=== PATIENT | female | born 1990 | race Caucasian/White ===

== ENCOUNTER → 2020-07-13 07:52 | Outpatient (CLI) | payer OTHER, MEDICAID, SELFPAY ==
--- NOTE | 2020-07-13 | DI.US.S_ITS ---
PROCEDURE: US THYROID INDICATIONS: Nontoxic goiter, IUD PLACEMENT/ ANKLE INJURY TECHNIQUE: Real-time scanning was performed of the thyroid gland, with image documentation. COMPARISON: [facility], US, US PELVIC COMPLETE, 07/13/2020, 11:08. FINDINGS: Right: Thyroid lobe measures 5 x 1.8 x 1.8 cm. Left: Thyroid lobe measures 4.6 x 1.2 x 1.8 cm. Isthmus: 3.6 mm thick. IMPRESSION: Unremarkable thyroid, without focal nodules identified. ACR TI-RADS definitions and recommendations: TI-RADS 1 (benign): 0 points. FNA not needed. TI-RADS 2 (not suspicious): 2 points. FNA not needed. TI-RADS 3 (mildly suspicious): 3 points. * FNA if 2.5 cm or larger, follow up if 1.5 cm or larger (at 1, 3, and 5 years). TI-RADS 4 (moderately suspicious): 4-6 points. * FNA if 1.5 cm or larger, follow up if 1 cm or larger (at 1, 2, 3, and 5 years). TI-RADS 5 (highly suspicious): 7 points or more. * FNA if 1 cm or larger, follow up if 0.5 cm or larger (every year for 5 years). Dictated by: Sean Lindsay M.D. on 07/13/2020 at 12:03 Approved by: Sean Lindsay M.D. on 07/13/2020 at 12:03
--- NOTE | 2020-07-13 | DI.US.S_ITS ---
PROCEDURE: US PELVIC COMPLETE INDICATIONS: Nontoxic goiter, IUD PLACEMENT/ ANKLE INJURY TECHNIQUE: Real-time scanning was performed of the pelvic organs, with image documentation. Additional endovaginal scanning was necessary due to incomplete visualization of the adnexal and endometrial structures by transabdominal scanning. COMPARISON: [facility], , US THYROID, 07/13/2020, 10:55. [facility], , PELVIC COMPLETE, 07/07/2013, 12:23. FINDINGS: Transabdominal scanning: Limited scanning through the kidneys shows no hydronephrosis. No pathologic free abdominal or pelvic fluid. Endovaginal scanning: Uterus: Uterus is normal in size at 6.5 x 2.9 x 4.3 cm. The endometrium measures 4 mm in combined thickness. An IUD is seen at its expected location. Ovaries: The right ovary measures 4.7 x 3.2 x 3.1 cm and demonstrates a complex cyst that measures 2.6 x 1.9 x 2.3 cm. The left ovary measures 2.9 x 2.1 x 2 x 1 cm and demonstrates an unremarkable sonographic appearance. Normal appearing arterial waveforms are confirmed to each ovary. No adnexal masses are seen on either side. IMPRESSION: The IUD is seen at its expected location. A likely hemorrhagic cyst is seen involving the right ovary. At clinical discretion, a followup pelvic ultrasound is suggested in 6 weeks to assure resolution/ improvement. Dictated by: Sean Lindsay M.D. on 07/13/2020 at 12:04 Approved by: Sean Lindsay M.D. on 07/13/2020 at 12:05
--- NOTE | 2020-07-13 | DI.RAD.S_ITS ---
PROCEDURE: XR ANKLE LT 2V INDICATIONS: LEFT ANKLE INJURY 6 MONTHS AGO/ ONGOING PAIN TECHNIQUE: 3 views of the ankle were acquired. COMPARISON: [facility], , ANKLE 3 VIEWS RIGHT, 09/25/2015, 15:01. FINDINGS: Bones: No fractures or dislocations. Ankle mortise is normally aligned. No suspicious bony lesions. Soft tissues: No tibiotalar joint effusion. Achilles tendon appears normal. IMPRESSION: Source of her persistent pain after 6 months ago trauma is not found. Dictated by: Juan F Forrest M.D. on 07/13/2020 at 9:03 Approved by: Juan F Forrest M.D. on 07/13/2020 at 10:32
== END ==
PROVIDERS: PCP Internal Medicine; Referring Provider Internal Medicine; Visit Provider Internal Medicine
DX: Z30.431 Encounter for routine checking of intrauterine contraceptive device (principal); N83.291 Other ovarian cyst, right side; E04.9 Nontoxic goiter, unspecified; M25.572 Pain in left ankle and joints of left foot
CPT/HCPCS: 73610; 76536; 76830; 76856

== ENCOUNTER → 2020-08-16 14:52 | Outpatient (CLI) | payer OTHER, MEDICAID, SELFPAY ==
--- NOTE | 2020-08-16 14:54 | DI.US.S_ITS ---
PROCEDURE: US PELVIC COMPLETE INDICATIONS: Hemorrhagic cyst right ovary TECHNIQUE: Real-time scanning was performed of the pelvic organs, with image documentation. Additional endovaginal scanning was necessary due to incomplete visualization of the adnexal and endometrial structures by transabdominal scanning. COMPARISON: [facility], , US PELVIC COMPLETE, 07/13/2020, 11:08. FINDINGS: Transabdominal scanning: Limited scanning through the kidneys shows no hydronephrosis. No pathologic free abdominal or pelvic fluid. Endovaginal scanning: Uterus: Uterus is normal in size at 6.3 x 2.7 x 3.5 cm. The endometrium measures 4.4 mm in combined thickness. Ovaries: Both ovaries have a normal size. The right ovary measures 3.0 x 2.7 x 2.7 centimeters. The left ovary measures 3.2 x 1.7 x 2.2 centimeters. The right ovary has a 5 x 3 millimeter hyperechoic focus with posterior acoustic shadowing consistent with a calcification or possible corpus albicans (residual from prior hemorrhagic cyst.) Kidneys: Both kidneys have a normal size and appearance. IMPRESSION: 1. No acute abnormality of the pelvis. 2. IUD is in good position. 3. Hemorrhagic cyst seen on the prior study has resolved. Dictated by: Saqib Hanks M.D. on 08/16/2020 at 16:33 Approved by: Saqib Hanks M.D. on 08/16/2020 at 16:38
== END ==
PROVIDERS: PCP Internal Medicine; Referring Provider Internal Medicine; Visit Provider Internal Medicine
DX: N83.201 Unspecified ovarian cyst, right side (principal); Z97.5 Presence of (intrauterine) contraceptive device
CPT/HCPCS: 76856

== ENCOUNTER 2021-05-26 08:42 | Emergency (ER) | payer OTHER, MEDICAID, SELFPAY ==
[2021-05-26 08:56] VITALS: BP 170/94; PULSE 86; RESP 16; TEMP 36.6; O2SAT 98
--- NOTE | 2021-05-26 09:22 | DI.RAD.S_ITS ---
PROCEDURE: XR KUB INDICATIONS: lt side pain TECHNIQUE: One view of the abdomen acquired. COMPARISON: None. FINDINGS: Surgical changes and devices: IUD noted within the pelvis.. Bowel: Bowel gas pattern is normal. Soft tissues: No suspicious abdominal calcifications. Visualized solid organ contours appear normal in size. Bones: Likely bone island within the right femoral neck. No acute osseous abnormality. IMPRESSION: No acute abnormality. Dictated by: Lucas Escobedo D.O. on 05/26/2021 at 8:56 Approved by: Lucas Escobedo D.O. on 05/26/2021 at 8:57
--- NOTE | 2021-05-26 09:24 | ED_ITS ---
HPI - Abdominal Pain General Chief Complaint: Abdominal Pain Stated Complaint: pain in left side below ribs Time Seen by Provider: 05/26/21 09:11 Source: patient Mode of arrival: Ambulatory History of Present Illness HPI narrative: Patient here with . Complains of reproducible left upper quadrant pain. Worse with laying flat in up and moving. Worse on palpation. No changes with eating or not eating. No nausea vomiting diarrhea. No urinary complaints. Patient has IUD. Does not have her periods. Denies any past abdominal surgical history. No history of insert reflux or stomach ulcer. No relief with ibuprofen Related Data Previous Rx's Medication Instructions Recorded pantoprazole 40 mg tablet,delayed 40 mg PO DAILY #14 tab 05/26/21 release (Protonix) sucralfate 1 gram tablet (Carafate) 1 g PO TID #21 tab 05/26/21 Allergies Allergy/AdvReac Type Severity Reaction Status Date / Time No Known Drug Allergies Allergy Verified 05/26/21 09:02 Review of Systems Review of Systems Narrative: GENERAL: Denies chills, fatigue, malaise, fever, sweats. HEENT: Denies sinus pain, ear pain, sore throat RESPIRATORY: Denies dyspnea, cough CARDIOVASCULAR: Denies chest pain, palpitations GASTROINTESTINAL: Denies nausea, vomiting, positive abdominal pain : Denies dysuria, frequency, hematuria MUSCULOSKELETAL: denies muscle or bony pain SKIN: Denies rash, skin lesions NEUROLOGIC: Denies weakness, numbness ROS Unobtainable: All systems reviewed & are unremarkable except as noted in HPI and below Patient History Medical History Acne (~2009) Painful menstrual periods (~2007) Plantar warts (~1997) Surgical History History of third molar tooth extraction (~2009) History of use of contraceptive intrauterine device (IUD) (~05/25/13) Family History Father Age: 51 Coronary artery disease, angina presence unspecified, unspecified vessel or lesion type, unspecified whether [place] or transplanted heart High cholesterol Essential hypertension Mother Age: 50 [place] syndrome Uncomplicated asthma, unspecified asthma severity Grandfather Age: 78 Essential hypertension High cholesterol Heart disease Grandmother Age: 78 Diabetes mellitus Grandfather No problems noted. Social History Smoking Status: Never smoker Smoking Status: Never smoker alcohol intake frequency: a few times a week Substance Use Type: does not use Exam Narrative Exam Narrative: GENERAL: in no distress, not toxic not dyspneic HEAD: Normocephalic. EYES: Pupils equal round No scleral icterus. NECK: Trachea midline. CARDIOVASCULAR: Regular rate and rhythm without murmurs RESPIRATORY: Clear to auscultation. Breath sounds equal bilaterally. No wheezes, rales, or rhonchi. GASTROINTESTINAL: Abdomen soft, reproducible left upper quadrant tenderness on palpation. No CVA tenderness. No peritoneal signs. Bowel sounds present EXTREMITIES: No gross deformities. BACK: No flank tenderness. NEURO: AOx4. SKIN: Warm and dry PSYCH: Not anxious, is cooperative Initial Vital Signs Initial Vital Signs: Vital Signs Temperature 98 F 05/26/21 08:56 Pulse Rate 86 05/26/21 08:56 Respiratory Rate 16 05/26/21 08:56 Blood Pressure 170/94 H 05/26/21 08:56 Pulse Oximetry 98 05/26/21 08:56 Course Course Course Narrative: No new issues during course of stay Orders Ordered: ED Orders 05/26/21 09:22 XR KUB Stat 05/26/21 09:35 Complete Blood Count AUTO DIFF Stat Comprehensive Metabolic Panel Stat Lipase Stat Discontinued Medications Al Hydrox/Mg Hydrox/Simethicone 20 ml/ Lidocaine HCl 15 ml 0 ml PO NOW ONE Stop: 05/26/21 10:50 Last Admin: 05/26/21 10:57 Dose: 35 ml Documented by: ANIVAL Pantoprazole Sodium (Pantoprazole 40 Mg Vial) 40 mg IV NOW ONE Stop: 05/26/21 09:24 Last Admin: 05/26/21 09:51 Dose: Not Given Documented by: MOOKOTEM Pantoprazole Sodium (Pantoprazole Dr 20 Mg Tablet) 40 mg PO NOW ONE Stop: 05/26/21 09:49 Last Admin: 05/26/21 10:01 Dose: 40 mg Documented by: ANIVAL Reevaluation(s) Reevaluation #1: Patient states got some relief with GI cocktail. On reexamination less tender on palpation of left upper quadrant. Reviewed blood work and x-ray with patient. Agrees with treatment plan. No CT scan at this time. Will try antacids and prescription and follow-up with primary care. Given patient referral general surgeon for possible endoscopy of the stomach if not improving. Blood pressure improved 136/89 at time of discharge. Pulse 77. Respiration 17. 99% room air. Time: 11:32 Vital Signs Vital signs: Vital Signs - 8 hr 05/26/21 08:56 05/26/21 10:40 05/26/21 11:49 Temperature 98 F Pulse Rate 86 77 77 Respiratory Rate 16 17 17 Blood Pressure 170/94 H 136/89 128/76 Pulse Oximetry 98 99 98 MDM - Abdominal Pain Differential Diagnosis Differential diagnosis: Likely abdominal pain, calculus of kidney, diverticulitis, gastroenteritis, pancreatitis, small bowel obstruction and other (Gastritis/GERD) Lab Data Result diagrams: 05/26/21 09:35 05/26/21 09:35 Labs: Lab Results 05/26/21 05/26/21 Range/Units 09:35 09:35 WBC 5.2 (4.5-11.0) X10^3/uL RBC 4.47 (4.0-5.2) X10^6/uL Hgb 13.9 (12.0-16.0) g/dL Hct 42.3 (36-46) % MCV 94.7 (80-100) fL MCH 31.1 (26-34) PG MCHC 32.8 (30-36) % RDW 12.7 (11.6-14.8) % Plt Count 233 (150-400) X10^3/uL Neut % (Auto) 62.0 (50-75) % Lymph % (Auto) 28.1 (25-40) % Robertson % (Auto) 6.9 (3-14) % Eos % (Auto) 2.6 (2-4) % Baso % (Auto) 0.4 (0-2) % Neut # (Auto) 3200 (6005-7180) /uL Lymph # (Auto) 1500 (1242-5903) /uL Robertson # (Auto) 400 (0-900) /uL Eos # (Auto) 100 (0-450) /uL Baso # (Auto) 0 (0-100) /uL Sodium 139 (137-145) mmol/L Potassium 4.8 (3.4-5.1) mmol/L Chloride 106 (98-107) mmol/L Carbon Dioxide 26 (22-32) mmol/L BUN 13 (7-17) mg/dL Creatinine 0.63 (0.52-1.04) mg/dL Estimated GFR > 60.0 (>60) mL/min BUN/Creatinine Ratio 20.6 (6-22) Glucose 88 (70-100) mg/dL Calcium 9.2 (8.4-10.2) mg/dL Total Bilirubin 0.6 (0.2-1.3) mg/dL AST 23 (14-36) IU/L ALT 16 (<35) IU/L Alkaline Phosphatase 56 (38-126) U/L Total Protein 7.5 (6.3-8.2) g/dL Albumin 4.4 (3.5-5.0) g/dL Globulin 3.1 (1.7-4.1) g/dL Albumin/Globulin Ratio 1.4 (1.0-2.8) Lipase 86 (23-300) U/L Point of care testing: Point of Care Testing Test Results Negative Urine Dip Bedside Urine Glucose Negative Bedside Urine Bilirubin - Negative Bedside Urine Ketone - Negative Urine Specific [place] 1.015 Bedside Urine Occult Blood - Negative Bedside Urine pH 7.0 Bedside Urine Protein - Negative Bedside Urine Urobilinogen - Negative Bedside Urine Nitrite - Negative Bedside Urine Leukocytes - Negative Esterase Imaging Data Abdominal x-ray: Radiologist's Impression: [address] [id number] XRay Report Signed Patient: Jacqueline Cummings MR#: [id number] : 1990 Acct:[id number] Age/Sex: 30 / F Date of Service: 05/26/21 Loc: ED Accession Number: [id number] ?? Procedure: XR KUB Ordering Provider: Junior Ramos MD PROCEDURE:? XR KUB ? INDICATIONS:? lt side pain ? TECHNIQUE:? One view of the abdomen acquired.? ? COMPARISON:? None. ? FINDINGS:? ? Surgical changes and devices:? IUD noted within the pelvis..? ? Bowel:? Bowel gas pattern is normal.? ? Soft tissues:? No suspicious abdominal calcifications.? Visualized solid organ contours appear normal in size.? ? Bones:? Likely bone island within the right femoral neck.? No acute osseous abnormality. ? IMPRESSION:? ? No acute abnormality. ? ? Dictated by: Lucas Escobedo D.O. on 05/26/2021 at 8:56 ? ? Approved by: Lucas Escobedo D.O. on 05/26/2021 at 8:57 ? MDM Narrative Medical decision making narrative: Appropriate for discharge home. Patient not toxic. Review results with patient and . Return precautions reviewed with him. Agree no CT scan at this time. Pain is reproducible left upper quadrant. Labs and exam and x-ray reassuring. Patient does have primary care to follow up with. Clinically not cardiac. No chest pain. Pain is rep roducible. No Cummings sign right-sided abdominal tenderness. No ultrasound indicated. Again, labs and exam and imaging reassuring. Return precautions reviewed with patient to return immediately if worse if any questions or concerns. Discharge Plan Departure Patient Disposition: Home Clinical Impression: Abdominal pain Instructions: DI for Abdominal Pain-Adult Activity Restrictions/Additional Instructions: No spicy foods. See family doctor next week for recheck. Referral given for possible endoscopy of the stomach if needed. Return if worse if any questions or concerns Prescriptions: New pantoprazole [Protonix] 40 mg tablet,delayed release (DR/EC) 40 mg PO DAILY Qty: 14 RF: 0 sucralfate [Carafate] 1 gram tablet 1 g PO TID Qty: 21 RF: 0 Referrals: Christin Monterroso ARNP [Primary Care Provider] - Nano Cordova MD [Physician] -
[2021-05-26 09:46] LABS: Add Manual Diff / Slide Review NO; Basophils Absolute Auto 0 /uL (0-100); Basophils Percent Auto 0.4 % (0-2); Eosinophils Absolute Auto 100 /uL (0-450); Eosinophils Percent Auto 2.6 % (2-4); Hematocrit 42.3 % (36-46); Hemoglobin 13.9 g/dL (12.0-16.0); Lymphocytes Absolute Auto 1500 /uL (1100-4500); Lymphocytes Percent Auto 28.1 % (25-40); Mean Corpuscular HGB Conc 32.8 % (30-36); Mean Corpuscular Hemoglobin 31.1 PG (26-34); Mean Corpuscular Volume 94.7 fL (80-100); Monocytes Absolute Auto 400 /uL (0-900); Monocytes Percent Auto 6.9 % (3-14); Neutrophils Absolute Auto 3200 /uL (1500-7000); Platelet Count 233 X10^3/uL (150-400); Red Blood Cell Count 4.47 X10^6/uL (4.0-5.2); Red Cell Distribution Width 12.7 % (11.6-14.8); White Blood Cell Count 5.2 X10^3/uL (4.5-11.0)
[2021-05-26] MEDS: PANTOPRAZOLE DR 20 MG TABLET 40 MG PO (10:01)
[2021-05-26 10:06] LABS: Alanine Aminotransferase 16 IU/L (<35); Albumin 4.4 g/dL (3.5-5.0); Albumin Globulin Ratio 1.4 (1.0-2.8); Alkaline Phosphatase 56 U/L (38-126); Aspartate Aminotransferase 23 IU/L (14-36); BUN Creatinine Ratio 20.6 (6-22); Bilirubin Total 0.6 mg/dL (0.2-1.3); Blood Urea Nitrogen 13 mg/dL (7-17); Calcium 9.2 mg/dL (8.4-10.2); Carbon Dioxide 26 mmol/L (22-32); Chloride 106 mmol/L (98-107); Estimated Glomerular Filt Rate > 60.0 mL/min (>60); Globulin 3.1 g/dL (1.7-4.1); Glucose 88 mg/dL (70-100); HEMOLYSIS < 15 (0-50); Lipase 86 U/L (23-300); Potassium 4.8 mmol/L (3.4-5.1); Sodium 139 mmol/L (137-145); Total Protein 7.5 g/dL (6.3-8.2)
[2021-05-26 10:40] VITALS: BP 136/89; PULSE 77; RESP 17; O2SAT 99
[2021-05-26] MEDS: MAG HYDROX/ALUMINUM/SIMETH SUS 20 ML, LIDOCAINE VISCOUS 2% 15 ML PO (10:57)
[2021-05-26 11:49] VITALS: BP 128/76; PULSE 77; RESP 17; O2SAT 98
== END 2021-05-26 11:50 | disposition home or self-care (01) ==
PROVIDERS: Emergency Provider Emergency Medicine; PCP Internal Medicine
DX: R10.12 Left upper quadrant pain (principal)
CPT/HCPCS: 36415; 74018; 80053; 81003; 81025; 83690; 85025; 99283; 99284

== ENCOUNTER → 2021-06-05 07:01 | Outpatient (CLI) | payer OTHER, MEDICAID, SELFPAY ==
--- NOTE | 2021-06-05 07:02 | DI.US.S_ITS ---
PROCEDURE: US PELVIC COMPLETE INDICATIONS: IUD STRINGS NOT FOUND TECHNIQUE: Real-time scanning was performed of the pelvic organs, with image documentation. Additional endovaginal scanning was necessary due to incomplete visualization of the adnexal and endometrial structures by transabdominal scanning. COMPARISON: [facility], US, US PELVIC COMPLETE, 08/16/2020, 15:13. FINDINGS: Uterus: Uterus is anteverted, anteflexed, and normal in size at 5.8 x 2.2 x 4.3 cm. An IUD is situated normally in the fundal endometrium. The endometrium measures 1.8 mm in combined thickness. Ovaries: The right ovary measures 3.3 x 1.8 x 2.0 cm. The left ovary measures 2.5 x 2.3 x 2.2 cm. Normal follicular echotexture and vascular flow in each ovary. Other: No pathologic free abdominal or pelvic fluid. IMPRESSION: 1. Satisfactory position of IUD. 2. Normal ovaries. Dictated by: Vashti Canales M.D. on 06/07/2021 at 17:32 Approved by: Vashti Canales M.D. on 06/07/2021 at 17:34
== END ==
PROVIDERS: PCP Internal Medicine; Referring Provider Obstetrics & Gynecology; Visit Provider Obstetrics & Gynecology
DX: T83.32XA Displacement of intrauterine contraceptive device, initial encounter (principal)
CPT/HCPCS: 76830; 76856

== ENCOUNTER → 2021-08-07 08:53 | Outpatient (CLI) | payer OTHER, MEDICAID, SELFPAY ==
[2021-08-07 10:17] LABS: COVID19 -Nasal RAPID Negative (Negative)
== END ==
PROVIDERS: PCP Internal Medicine; Visit Provider Physician Assistant
DX: Z20.822 Contact with and (suspected) exposure to COVID-19 (principal)
CPT/HCPCS: 87635

== ENCOUNTER → 2021-08-20 09:08 | Outpatient (CLI) | payer OTHER, MEDICAID, SELFPAY ==
--- NOTE | 2021-08-20 | DI.US.S_ITS ---
LIMITED ULTRASOUND OF LEFT BREAST: 08/20/2021 CLINICAL: Palpable left breast lump x 1 year. No prior exams were available for comparison. Real-time ultrasound of the left breast 5-7 o'clock region was performed. Bran scale images of the real-time examination were reviewed. No mass in the region of the palpable abnormality. IMPRESSION: NEGATIVE No sonographic evidence of malignancy in the region of the palpable abnormality. Return to annual mammogram screening schedule is recommended. Usually to commence at age 40. Exam findings were conveyed to the patient. Patient is advised to monitor for significant change. Clinical follow-up as needed. This exam was interpreted at Station ID: [id number]. Electronically Signed By: Steven Castañeda M.D. [facility] [place]08/20/2021 10:00:57 letter sent: Normal Exam Ultrasound BI-RADS: 1 Negative
== END ==
PROVIDERS: PCP Internal Medicine; Referring Provider Internal Medicine; Visit Provider Internal Medicine
DX: N63.25 Unspecified lump in the left breast, overlapping quadrants (principal)
CPT/HCPCS: 76642

== ENCOUNTER 2021-12-13 08:07 | Emergency (ER) | payer OTHER, MEDICAID, SELFPAY ==
[2021-12-13] VITALS (9 sets, daily range): BP systolic 136–162; BP diastolic 59–80; PULSE 72–99; RESP 18; TEMP 36.6; O2SAT 95–98; BMI 25.8
--- NOTE | 2021-12-13 08:33 | DI.US.S_ITS ---
PROCEDURE: US OB <= 14 WEEKS FETUS INDICATIONS: BLEEDING OUTSIDE/PRIOR DATING DATA: Last menstrual period (LMP): Unknown LMP-based estimated date of delivery (MARIA EUGENIA): Unknown. First dating scan (date and location): N/A. Estimated date of delivery (MARIA EUGENIA) from first dating scan: N/A. TECHNIQUE: Real-time scanning was performed of the fetus and maternal pelvic organs, with image documentation. Endovaginal scanning was also performed to better visualize the fetus and maternal ovaries. COMPARISON: None. FINDINGS: No intrauterine gestation seen. Uterus: 5.8 x 3.8 x 2.8 cm, with an endometrial complex of 4.3 mm. Maternal organs: Right ovary measures 2.9 x 3.3 x 2.8 cm with a probable calcification. Left ovary measures 2.2 x 2.5 x 1.6 cm. IMPRESSION: No intrauterine gestation or ectopic gestation noted. Otherwise unremarkable pelvic ultrasound. Comment: Consider serial beta hCGs and potential follow-up ultrasound in 1-2 weeks. We strive to produce accurate, complete, and clear reports of imaging services. To assist us in improving patient care, this report was composed using standard report templates and voice recognition software. Therefore, it may contain abnormal punctuation, insertions and/or omissions. Occasional wrong-word or sound-alike substitutions may occur. Though we review the report and make efforts to correct it, we do recommend that the report be read carefully in proper context to recognize any text inaccuracies. Dictated by: Bib Morrell M.D. on 12/13/2021 at 10:41 Approved by: Bib Morrell M.D. on 12/13/2021 at 10:44
[2021-12-13 08:47] LABS: Add Manual Diff / Slide Review NO; Basophils Absolute Auto 0 /uL (0-100); Basophils Percent Auto 0.4 % (0-2); Eosinophils Absolute Auto 100 /uL (0-450); Eosinophils Percent Auto 1.8 % (2-4); Hematocrit 41.9 % (36-46); Hemoglobin 14.4 g/dL (12.0-16.0); Lymphocytes Absolute Auto 1700 /uL (1100-4500); Lymphocytes Percent Auto 30.3 % (25-40); Mean Corpuscular HGB Conc 34.5 % (30-36); Mean Corpuscular Hemoglobin 31.2 PG (26-34); Mean Corpuscular Volume 90.5 fL (80-100); Monocytes Absolute Auto 400 /uL (0-900); Monocytes Percent Auto 6.8 % (3-14); Neutrophils Absolute Auto 3400 /uL (1500-7000); Neutrophils Percent Auto 60.7 % (50-75); Platelet Count 314 X10^3/uL (150-400); Red Blood Cell Count 4.63 X10^6/uL (4.0-5.2); Red Cell Distribution Width 12.4 % (11.6-14.8); White Blood Cell Count 5.6 X10^3/uL (4.5-11.0)
[2021-12-13 08:51] LABS: Appearance Urine UA CLEAR; Bilirubin Urine UA NEGATIVE (NEGATIVE); Color Urine UA YELLOW; Glucose Urine UA NEGATIVE (Negative); Ketones Urine UA NEGATIVE (NEGATIVE); Leukocyte Esterase Urine UA NEGATIVE (NEGATIVE); Nitrite Urine UA NEGATIVE (Negative); Occult Blood Urine UA 3+ (Negative); Protein Urine UA NEGATIVE (Negative); Urobilinogen Urine UA 0.2 E.U./dL (0.2)
[2021-12-13 08:52] LABS: Alanine Aminotransferase 19 IU/L (<35); Albumin 4.6 g/dL (3.5-5.0); Albumin Globulin Ratio 1.3 (1.0-2.8); Alkaline Phosphatase 63 U/L (38-126); Aspartate Aminotransferase 33 IU/L (14-36); BUN Creatinine Ratio 17.9 (6-22); Bilirubin Total 0.6 mg/dL (0.2-1.3); Blood Urea Nitrogen 12 mg/dL (7-17); Calcium 8.9 mg/dL (8.4-10.2); Carbon Dioxide 23 mmol/L (22-32); Chloride 104 mmol/L (98-107); Estimated Glomerular Filt Rate > 60 mL/min (>60); Globulin 3.5 g/dL (1.7-4.1); Glucose 97 mg/dL (70-100); HEMOLYSIS 24 (0-50); Potassium 3.9 mmol/L (3.4-5.1); Sodium 137 mmol/L (137-145); Total Protein 8.1 g/dL (6.3-8.2)
[2021-12-13 08:57] LABS: Bacteria Urine None Seen; Culture Indicated Urine Cult Not Indicated; RBC Urine 30-100/HPF (0-5/HPF); WBC Urine 0-1/HPF (0-5/HPF)
[2021-12-13 09:09] LABS: HCG Quantitative /Beta subunit 11.2 mIU/mL
--- NOTE | 2021-12-13 10:07 | ED.PREGNANCY ---
HPI - General Chief complaint: Vaginal Bleeding Stated complaint: Thinks eptopic Time Seen by Provider: 12/13/21 10:06 Source: patient and family Mode of arrival: Ambulatory Limitations: no limitations History of Present Illness HPI Narrative: Patient is a 31-year-old female presenting today with vaginal bleeding. She says that she thinks she was in October she had a faint positive test, she then was diagnosed with COVID a a week or 2 later. She had some bleeding. She has been monitoring her ovulation she says that she ovulated in then tested positive again for . She had a blood test recently which showed that it was 88. However she woke up this morning with some left-sided neck pain in some light spotting brownish red. She has no abdominal pain. She thought the neck pain might be related to an ectopic she has no prior history of an ectopic. She is actively trying to get . She denies any fever nausea vomiting or upper respiratory symptoms. Related Data Previous Rx's Medication Instructions Recorded pantoprazole 40 mg tablet,delayed 40 mg PO DAILY #14 tab 05/26/21 release (Protonix) sucralfate 1 gram tablet (Carafate) 1 g PO TID #21 tab 05/26/21 Allergies Allergy/AdvReac Type Severity Reaction Status Date / Time No Known Drug Allergies Allergy Verified 08/07/21 08:58 Review of Systems Review of Systems Narrative: GENERAL: Denies chills, fatigue, malaise, fever, sweats, travel HEENT: Denies sinus pain, ear pain, sore throat, difficulty swallowing, neck pain RESPIRATORY: Denies dyspnea, cough, wheezing, hemoptysis, sputum. CARDIOVASCULAR: Denies chest pain, palpitations, orthopnea, edema GASTROINTESTINAL: Denies nausea, vomiting, abdominal pain, diarrhea, constipation, melena. : Denies dysuria, frequency, incontinence, hematuria, urinary retention, flank pain. RECORDS COORDINATOR: See HPI MUSCULOSKELETAL: Denies weakness, joint pain, or bony pain SKIN: No rash, no erythema, no pruritus NEUROLOGIC: Denies weakness, dizziness, headache, numbness, change in speech, confusion PSYCHIATRIC: No concerning psychosocial issues. 12 point review of systems is negative except for those stated above and HPI Exam Initial Vital Signs Initial Vital Signs: Vital Signs Pulse Rate 99 H 12/13/21 08:17 Pulse Oximetry 98 12/13/21 08:17 GENERAL: Alert slightly tearful 31-year-old female HEENT: Head atraumatic,EOMI, pupils reactive, face symmetric, moist mucous membranes CARDIOVASCULAR: Regular rate and rhythm without murmurs, rubs or gallops. RESPIRATORY: Breath sounds equal bilaterally, no wheezes rales or rhonchi. ABDOMEN: Soft, nontender. Normoactive bowel sounds all 4 quadrants. No guarding or rebound. EXTREMITIES: Normal range of motion, no clubbing or edema. Neurovascularly intact NEUROLOGICAL: Alert and oriented x4.Normal gait and speech. SKIN: Warm, dry, no laceration, no petechiae, no rashes or lesions. Course Orders Ordered: Discontinued Medications Acetaminophen (Acetaminophen 325 Mg Tablet) 975 mg PO NOW ONE Stop: 12/13/21 10:48 Last Admin: 12/13/21 10:53 Dose: 975 mg Documented by: PAT Ibuprofen (Ibuprofen 400 Mg Tablet) 800 mg PO NOW ONE Stop: 12/13/21 10:51 Last Admin: 12/13/21 10:53 Dose: 800 mg Documented by: PAT Vital Signs Vital signs: Vital Signs - 8 hr 12/13/21 08:17 12/13/21 08:18 12/13/21 08:33 Temperature 97.8 F Pulse Rate 99 H 92 H 75 Respiratory Rate 18 Blood Pressure 162/77 H 162/77 H Pulse Oximetry 98 97 98 12/13/21 08:39 12/13/21 08:41 12/13/21 09:00 Temperature Pulse Rate 78 80 75 Respiratory Rate 18 18 Blood Pressure 136/69 136/70 Pulse Oximetry 95 98 98 12/13/21 09:30 12/13/21 10:00 Temperature Pulse Rate 93 H 72 Respiratory Rate 18 Blood Pressure 136/59 L Pulse Oximetry 97 98 MDM - OB/Uterine Contractions Lab Data Result diagrams: 12/13/21 08:27 12/13/21 08:27 Labs: Lab Results 12/13/21 12/13/21 12/13/21 Range/Units 08:27 08:27 08:27 WBC 5.6 (4.5-11.0) X10^3/uL RBC 4.63 (4.0-5.2) X10^6/uL Hgb 14.4 (12.0-16.0) g/dL Hct 41.9 (36-46) % MCV 90.5 (80-100) fL MCH 31.2 (26-34) PG MCHC 34.5 (30-36) % RDW 12.4 (11.6-14.8) % Plt Count 314 (150-400) X10^3/uL Neut % (Auto) 60.7 (50-75) % Lymph % (Auto) 30.3 (25-40) % Elbert % (Auto) 6.8 (3-14) % Eos % (Auto) 1.8 L (2-4) % Baso % (Auto) 0.4 (0-2) % Neut # (Auto) 3400 (5482-4259) /uL Lymph # (Auto) 1700 (6510-4001) /uL Elbert # (Auto) 400 (0-900) /uL Eos # (Auto) 100 (0-450) /uL Baso # (Auto) 0 (0-100) /uL Sodium 137 (137-145) mmol/L Potassium 3.9 (3.4-5.1) mmol/L Chloride 104 (98-107) mmol/L Carbon Dioxide 23 (22-32) mmol/L BUN 12 (7-17) mg/dL Creatinine 0.67 (0.52-1.04) mg/dL Estimated GFR > 60 (>60) mL/min BUN/Creatinine Ratio 17.9 (6-22) Glucose 97 (70-100) mg/dL Calcium 8.9 (8.4-10.2) mg/dL Total Bilirubin 0.6 (0.2-1.3) mg/dL AST 33 (14-36) IU/L ALT 19 (<35) IU/L Alkaline Phosphatase 63 (38-126) U/L Total Protein 8.1 (6.3-8.2) g/dL Albumin 4.6 (3.5-5.0) g/dL Globulin 3.5 (1.7-4.1) g/dL Albumin/Globulin Ratio 1.3 (1.0-2.8) HCG, Quant 11.2 mIU/mL Urine Color Urine Appearance Urine pH (4.5-8.0) Ur Specific Porter (1.000-1.035) Urine Protein (Negative) Urine Glucose (UA) (Negative) g/dL Urine Ketones (NEGATIVE) Urine Occult Blood (Negative) Urine Nitrate (Negative) Urine Bilirubin (NEGATIVE) Urine Urobilinogen (0.2) E.U./dL Ur Leukocyte Esterase (NEGATIVE) Urine RBC (0-5/HPF) Urine WBC (0-5/HPF) Urine Bacteria (None) Ur Culture Indicated? Blood Type O Positive 12/13/21 Range/Units 08:30 WBC (4.5-11.0) X10^3/uL RBC (4.0-5.2) X10^6/uL Hgb (12.0-16.0) g/dL Hct (36-46) % MCV (80-100) fL MCH (26-34) PG MCHC (30-36) % RDW (11.6-14.8) % Plt Count (150-400) X10^3/uL Neut % (Auto) (50-75) % Lymph % (Auto) (25-40) % Elbert % (Auto) (3-14) % Eos % (Auto) (2-4) % Baso % (Auto) (0-2) % Neut # (Auto) (8934-7320) /uL Lymph # (Auto) (5232-8264) /uL Elbert # (Auto) (0-900) /uL Eos # (Auto) (0-450) /uL Baso # (Auto) (0-100) /uL Sodium (137-145) mmol/L Potassium (3.4-5.1) mmol/L Chloride (98-107) mmol/L Carbon Dioxide (22-32) mmol/L BUN (7-17) mg/dL Creatinine (0.52-1.04) mg/dL Estimated GFR (>60) mL/min BUN/Creatinine Ratio (6-22) Glucose (70-100) mg/dL Calcium (8.4-10.2) mg/dL Total Bilirubin (0.2-1.3) mg/dL AST (14-36) IU/L ALT (<35) IU/L Alkaline Phosphatase (38-126) U/L Total Protein (6.3-8.2) g/dL Albumin (3.5-5.0) g/dL Globulin (1.7-4.1) g/dL Albumin/Globulin Ratio (1.0-2.8) HCG, Quant mIU/mL Urine Color Yellow Urine Appearance Clear Urine pH 7.0 (4.5-8.0) Ur Specific Porter 1.010 (1.000-1.035) Urine Protein Negative (Negative) Urine Glucose (UA) Negative (Negative) g/dL Urine Ketones Negative (NEGATIVE) Urine Occult Blood 3+ H (Negative) Urine Nitrate Negative (Negative) Urine Bilirubin Negative (NEGATIVE) Urine Urobilinogen 0.2 (0.2) E.U./dL Ur Leukocyte Esterase Negative (NEGATIVE) Urine RBC 30-100/hpf H (0-5/HPF) Urine WBC 0-1/hpf (0-5/HPF) Urine Bacteria None seen (None) Ur Culture Indicated? Cult not indicated Blood Type Point of Care Testing Test Results Negative Urine Dip Bedside Urine Glucose Negative Bedside Urine Bilirubin - Negative Bedside Urine Ketone - Negative Urine Specific Porter 1.015 Bedside Urine Occult Blood +++ Bedside Urine pH 6.0 Bedside Urine Protein - Negative Bedside Urine Urobilinogen 0.2 Bedside Urine Nitrite - Negative Bedside Urine Leukocytes - Negative Esterase MDM Narrative Medical decision making narrative: Patient's hCG is 11 no viable IUP noted in ultrasound. It is possible this is patient's 2nd in the last 2-3 months. Recommend outpatient follow-up with OB. Discharge Plan Departure Patient Disposition: Home Clinical Impression: Miscarriage Instructions: DI for Miscarriage Activity Restrictions/Additional Instructions: *You have been diagnosed with miscarriage *What to do: I am so sorry for your loss. Please talk with OBGYN about options. Please follow-up with your provider or automotive product engineer. Expect to have some vaginal bleeding and cramping. *Continue to take medications as directed Tylenol 1000 mg every 6 hours if needed for [id number] Ibuprofen 800 mg every 8 hours if needed for [id number] *Follow up with your primary care provider in 2-3 days or call [phone] *Return to ER if you should have increasing vaginal bleeding more than 2 pads in 1 hour, increased abdominal pain, dizziness lightheadedness or any new, worsening or concerning symptoms Prescriptions: No Action pantoprazole [Protonix] 40 mg tablet,delayed release (DR/EC) 40 mg PO DAILY Qty: 14 0RF sucralfate [Carafate] 1 gram tablet 1 g PO TID Qty: 21 0RF Referrals: Loc,Christin, [employer] MACHINE OPERATOR [Primary Care Provider] -
[2021-12-13] MEDS: IBUPROFEN 400 MG TABLET 800 MG PO (10:53)
[2021-12-13] MEDS: ACETAMINOPHEN 325 MG TABLET 975 MG PO (10:53)
== END 2021-12-13 10:56 | disposition home or self-care (01) ==
PROVIDERS: Emergency Provider Emergency Medicine; PCP Internal Medicine
DX: O03.9 Complete or unspecified spontaneous abortion without complication (principal)
CPT/HCPCS: 76801; 76817; 80053; 81001; 81003; 81025; 84702; 85025; 86900; 86901; 99283; 99284

== ENCOUNTER → 2022-02-08 11:41 | Outpatient (CLI) | payer OTHER, MEDICAID, SELFPAY ==
--- NOTE | 2022-02-08 | DI.RAD.S_ITS ---
PROCEDURE: XR FOOT LT MIN 3V INDICATIONS: pain in left foot TECHNIQUE: 3 views of the foot were acquired. COMPARISON: None. FINDINGS: Bones: No fractures or dislocations. No suspicious bony lesions. The interphalangeal joints have degenerative changes. Soft tissues: No tibiotalar joint effusion. Achilles tendon appears normal. IMPRESSION: Degenerative changes of the interphalangeal joints. No acute abnormality. Dictated by: Saqib Hanks M.D. on 02/08/2022 at 14:45 Approved by: Saqib Hanks M.D. on 02/08/2022 at 14:46
== END ==
PROVIDERS: PCP Internal Medicine; Referring Provider Internal Medicine; Visit Provider Internal Medicine
DX: M79.672 Pain in left foot (principal)
CPT/HCPCS: 73630

== ENCOUNTER → 2022-02-15 11:26 | Outpatient (CLI) | payer OTHER, MEDICAID, SELFPAY | PROVIDERS: PCP Internal Medicine; Referring Provider Obstetrics & Gynecology; Visit Provider Obstetrics & Gynecology | DX: N97.0 Female infertility associated with anovulation (principal) | CPT/HCPCS: 36415; 84144 ==

== ENCOUNTER → 2022-03-28 10:45 | Outpatient (CLI) | payer OTHER, MEDICAID, SELFPAY ==
[2022-03-28 15:19] LABS: HCG Quantitative /Beta subunit < 2.4 mIU/mL
== END ==
PROVIDERS: PCP Internal Medicine; Referring Provider Obstetrics & Gynecology; Visit Provider Obstetrics & Gynecology
DX: N97.0 Female infertility associated with anovulation (principal)
CPT/HCPCS: 36415; 84144; 84702

== ENCOUNTER → 2022-04-30 10:27 | Outpatient (CLI) | payer OTHER, MEDICAID, SELFPAY | PROVIDERS: PCP Internal Medicine; Referring Provider Obstetrics & Gynecology; Visit Provider Obstetrics & Gynecology | DX: N97.0 Female infertility associated with anovulation (principal) | CPT/HCPCS: 36415; 84144 ==

== ENCOUNTER → 2022-06-10 09:30 | Outpatient (CLI) | payer OTHER, MEDICAID, SELFPAY ==
[2022-06-10 11:43] LABS: HCG Quantitative /Beta subunit 409.4 mIU/mL
== END ==
PROVIDERS: PCP Internal Medicine; Referring Provider Obstetrics & Gynecology; Visit Provider Obstetrics & Gynecology
DX: N91.2 Amenorrhea, unspecified (principal)
CPT/HCPCS: 36415; 84702

== ENCOUNTER → 2022-06-12 10:23 | Outpatient (CLI) | payer OTHER, MEDICAID, SELFPAY ==
[2022-06-12 11:53] LABS: HCG Quantitative /Beta subunit 1093.7 mIU/mL
== END ==
PROVIDERS: PCP Internal Medicine; Referring Provider Obstetrics & Gynecology; Visit Provider Obstetrics & Gynecology
DX: N97.0 Female infertility associated with anovulation (principal)
CPT/HCPCS: 36415; 84702

== ENCOUNTER → 2022-06-28 06:43 | Outpatient (CLI) | payer OTHER, MEDICAID, SELFPAY ==
--- NOTE | 2022-06-28 06:44 | DI.US.S_ITS ---
PROCEDURE: US OB <= 14 WEEKS FETUS INDICATIONS: DATES OUTSIDE/PRIOR DATING DATA: Last menstrual period (LMP): 05/08/2022. LMP-based estimated date of delivery (MARIA EUGENIA): 02/12/2023 First dating scan (date and location): 06/28/2022 Estimated date of delivery (MARIA EUGENIA) from first dating scan: 02/14/2023 TECHNIQUE: Real-time scanning was performed of the fetus and maternal pelvic organs, with image documentation. Endovaginal scanning was also performed to better visualize the fetus and maternal ovaries. COMPARISON: [facility], US, US OB <= 14 WEEKS FETUS, 12/13/2021, 10:10. FINDINGS: Heart rate is 133 beats per minute. Intrauterine is seen with crown-rump length of 1 cm. Ultrasound estimated age of 7 weeks. There is a right corpus luteum cyst. IMPRESSION: Single living intrauterine living with ultrasound age of 7 weeks. We strive to produce accurate, complete, and clear reports of imaging services. To assist us in improving patient care, this report was composed using standard report templates and voice recognition software. Therefore, it may contain abnormal punctuation, insertions and/or omissions. Occasional wrong-word or sound-alike substitutions may occur. Though we review the report and make efforts to correct it, we do recommend that the report be read carefully in proper context to recognize any text inaccuracies. Dictated by: Adal Quinonez M.D. on 06/28/2022 at 8:43 Approved by: Adal Quinonez M.D. on 06/28/2022 at 8:45
== END ==
PROVIDERS: PCP Internal Medicine; Referring Provider Obstetrics & Gynecology; Visit Provider Obstetrics & Gynecology
DX: Z36.87 Encounter for antenatal screening for uncertain dates (principal); Z3A.01 Less than 8 weeks gestation of pregnancy
CPT/HCPCS: 76801; 76817

== ENCOUNTER → 2022-09-27 16:05 | Outpatient (CLI) | payer OTHER, MEDICAID, SELFPAY ==
--- NOTE | 2022-09-27 16:08 | DI.US.S_ITS ---
PROCEDURE: US OB >= 14 WEEKS FETUS INDICATIONS: 20WK ANATOMY OUTSIDE/PRIOR DATING DATA: Last menstrual period (LMP): 05/08/2022 LMP-based estimated date of delivery (MARIA EUGENIA): 02/12/2022 First dating scan (date and location): 06/28/2022 Estimated date of delivery (MARIA EUGENIA) from first dating scan: 02/14/2023 The calculations are made using the working MARIA EUGENIA of 02/12/2023. TECHNIQUE: Real-time scanning was performed of the fetus, with image documentation and biometric measurements. Endovaginal scanning: Not indicated COMPARISON: None. FINDINGS: General: A single living intrauterine gestation is present. Presentation: Variable. Placenta: Placental position is anterior, without previa. Amniotic fluid index: 18.6 cm, normal range is 5-24 cm. Single deepest vertical pocket is 5.3 cm. heart rate: 150 beats per minute. Maternal cervical canal: 3.2 cm long. Normal lower limit is 2.5 cm. biometrics: Biparietal diameter: 4.9 cm, 20 weeks, 6 days. Head circumference: 18.0 cm, 20 weeks, 3 days. Abdominal circumference: 15.4 cm, 20 weeks, 4 days. Femur length: 3.2 cm, 20 weeks, 1 day. Clinically estimated gestational age: 20 weeks, 2 days Composite gestational age from present scan: 20 weeks, 4 days Estimated weight and percentile: 350 g, 51% Anatomic survey: Neuro: Ventricles are non-dilated at less than 10 mm. Cisterna magna is normal at 3-11 mm. Cerebellum is normal in size and morphology. Nuchal skin fold: Normal at less than 6 mm between 14-21 weeks gestational age. Face: Nose and lips, facial profile are normal. Spine: No evidence for spina bifida. Heart: 4-chambered heart is present, with normal ventricular outflow tracts. Diaphragm: Diaphragm is intact. Stomach: Left-sided stomach is present. stomach appears to be lobulated at the beginning of the study and resolved by the end of the study. Kidneys: No hydronephrosis. Normal is less than 5 mm in 2nd trimester, less than 7 mm in 3rd trimester. Cord: 3-vessel cord has orthotopic insertion. Bladder: Normal in size. Extremities: All 4 extremities identified. IMPRESSION: 1. Single live intrauterine gestation with fetus in variable presentation. heart rate is 150 beats per minute. Normal amount of amniotic fluid. Normal growth. Estimated weight is at 51%. 2. Questionable lobulated contour of stomach which was resolved by the end of the study and is of indeterminate significance. 3. Rest of the anatomic survey is normal. We strive to produce accurate, complete, and clear reports of imaging services. To assist us in improving patient care, this report was composed using standard report templates and voice recognition software. Therefore, it may contain abnormal punctuation, insertions and/or omissions. Occasional wrong-word or sound-alike substitutions may occur. Though we review the report and make efforts to correct it, we do recommend that the report be read carefully in proper context to recognize any text inaccuracies. Dictated by: Ian Norris M.D. on 09/28/2022 at 8:31 Approved by: Ian Norris M.D. on 09/28/2022 at 8:34
== END ==
PROVIDERS: PCP Internal Medicine; Referring Provider Nurse Practitioner Obstetrics & Gynecology; Visit Provider Nurse Practitioner Obstetrics & Gynecology
DX: Z34.92 Encounter for supervision of normal pregnancy, unspecified, second trimester (principal); Z3A.20 20 weeks gestation of pregnancy
CPT/HCPCS: 76811

== ENCOUNTER → 2023-01-23 16:49 | Outpatient (CLI) | payer OTHER, MEDICAID, SELFPAY ==
--- NOTE | 2023-01-23 16:51 | DI.US.S_ITS ---
PROCEDURE: US OB BIOPHYSICAL PROFILE INDICATIONS: Supervision of other high risk pregnancies, OUTSIDE/PRIOR DATING DATA: Last menstrual period (LMP): 05/08/2022 LMP-based estimated date of delivery (MARIA EUGENIA): 02/12/2023 First dating scan (date and location): 06/28/2022 Estimated date of delivery (MARIA EUGENIA) from first dating scan: 02/14/2023 The calculations are made using the clinical MARIA EUGENIA of 02/12/2023 TECHNIQUE: Real-time scanning was performed of the fetus, with image documentation. Biophysical profile was also obtained. Endovaginal scanning: Not performed. COMPARISON: [facility], OB >= 14 WEEKS FETUS, 09/27/2022, 16:31. FINDINGS: General: A single living intrauterine gestation is present. Presentation: Vertex Placenta: Placental position is anterior, without previa. Amniotic fluid index: 9.8 cm, normal range is 5-24 cm. Single deepest vertical pocket is 3.8 cm. heart rate: 140 beats per minute. Maternal cervical canal: Not well visualized. Clinically estimated gestational age: 37 weeks 1 day Biophysical profile: Tone: 2 points. Movement: 2 points. Respiration: 2 points. Largest pocket of fluid: 2 points. IMPRESSION: 1. Single live intrauterine . 2. Biophysical profile score 8 of 8. 3. Amniotic fluid index is within normal limits at 9.8 cm. We strive to produce accurate, complete, and clear reports of imaging services. To assist us in improving patient care, this report was composed using standard report templates and voice recognition software. Therefore, it may contain abnormal punctuation, insertions and/or omissions. Occasional wrong-word or sound-alike substitutions may occur. Though we review the report and make efforts to correct it, we do recommend that the report be read carefully in proper context to recognize any text inaccuracies. Approved by: Hai Rascon M.D. on 01/24/2023 at 10:49
== END ==
PROVIDERS: PCP Internal Medicine; Referring Provider Nurse Practitioner Obstetrics & Gynecology; Visit Provider Nurse Practitioner Obstetrics & Gynecology
DX: Z3A.37 37 weeks gestation of pregnancy; O09.893 Supervision of other high risk pregnancies, third trimester; O26.613 Liver and biliary tract disorders in pregnancy, third trimester
CPT/HCPCS: 76819

== ENCOUNTER 2023-01-23 17:21 | Emergency (ER) | payer OTHER, MEDICAID, SELFPAY ==
[2023-01-23 17:24] VITALS: BP 175/82; PULSE 82; RESP 18; TEMP 36.4; O2SAT 100; BMI 30.7
--- NOTE | 2023-01-23 17:26 | DI.RAD.S_ITS ---
PROCEDURE: XR HAND RT MIN 3V INDICATIONS: hand injury TECHNIQUE: 3 views of the hand(s) acquired. COMPARISON: None. FINDINGS: Bones: No fractures or dislocations. Carpal bones are normally aligned. No suspicious bony lesions. Soft tissues: No suspicious soft tissue calcifications. IMPRESSION: No acute fracture. No osseous lesion. If symptoms and/or clinical suspicion for pathology persist, further assessment with repeat, or advanced imaging (e.g., CT, MRI, or bone scan) may be helpful for further assessment. Dictated by: Zaid Huitron M.D. on 01/23/2023 at 17:57 Approved by: Zaid Huitron M.D. on 01/23/2023 at 17:57
--- NOTE | 2023-01-23 18:10 | ED.GENADULT ---
HPI - General Adult General Chief complaint: Extremity Injury, Upper Stated complaint: rt hand injury s/p fall Time Seen by Provider: 01/23/23 17:43 Source: patient Mode of arrival: Ambulatory History of Present Illness HPI narrative: Patient is a 32-year-old female who is right-hand dominant is here for evaluation of an injury to her right hand that occurred after she fell. She does have pain on the dorsum of the right hand. She did put ice over the area before coming in. No other interventions. No other injuries from the event. Related Data Home Medications Medication Instructions Recorded Confirmed prenat.vits,leeanne,[id number] 1 tab PO DAILY 06/25/22 06/25/22 Allergies Allergy/AdvReac Type Severity Reaction Status Date / Time No Known Drug Allergies Allergy Verified 06/25/22 09:03 Review of Systems Constitutional Constitutional: Reports system reviewed and no additional complaints, except as documented Musculoskeletal Musculoskeletal: Reports system reviewed and no additional complaints, except as documented Integumentary/Breasts Skin/Breast: Reports system reviewed and no additional complaints, except as documented Neurologic Neurologic: Reports system reviewed and no additional complaints, except as documented Patient History Medical History Acne (~2009) Painful menstrual periods (~2007) Plantar warts (~1997) Surgical History (Updated 06/25/22 @ 09:05 by Arlin Mata RN) History of third molar tooth extraction (~2009) History of use of contraceptive intrauterine device (IUD) (~05/25/13) Hx of LASIK Family History (Updated 06/25/22 @ 09:16 by Arlin Mata RN) Father Age: 53 Coronary artery disease, angina presence unspecified, unspecified vessel or lesion type, unspecified whether torres martinez or transplanted heart High cholesterol Essential hypertension Mother Age: 52 Fuentes syndrome Uncomplicated asthma, unspecified asthma severity [place] Grandfather Essential hypertension High cholesterol Heart disease Grandmother Age: 80 Diabetes mellitus Grandmother Heart attack Breast cancer Social History marital status: number of children: 0 household members: spouse lives independently: Yes housing: house pets and animals: Yes (1 dog) education level: college (sally's degree) occupational status: employed current occupational exposures/hazards: No special robb needs: No travel history: over 6 months ago seatbelt use: always water heater temp set < 120 deg: Yes working smoke detector in home: Yes fire extinguisher in home: Yes carbon monox detector in home: Yes firearms in home: Yes firearms unloaded and locked: Yes do you feel safe at home: Yes Smoking Status: Never smoker second hand exposure: No alcohol intake: former (rarely, only when not or attempting to get so) substance use type: does not use during the past year weight has: increased > 10 lbs well-balanced diet: daily or most days daily servings fruits/ve or more times/day caffeine: Yes (1 cup/day, aware of 200mg limit) Type(s) of exercise: walking frequency: daily duration: 45-60 minutes/day Smoking Status: Never smoker alcohol intake frequency: other Substance Use Type: does not use Exam Initial Vital Signs Initial Vital Signs: Vital Signs Temperature 97.5 F L 01/23/23 17:24 Pulse Rate 82 01/23/23 17:24 Respiratory Rate 18 01/23/23 17:24 Blood Pressure 175/82 H 01/23/23 17:24 Pulse Oximetry 100 01/23/23 17:24 Oxygen Delivery Method Room Air 01/23/23 17:24 Const General: cooperative and No ill appearing Cardio Pulses: radial pulses present on the right Skin Other: Slight bruising of the dorsum of the right hand. Neuro Sensory Exam: no sensory deficits noted Extrem Other: Right wrist is unremarkable. She does have tenderness to palpation of the dorsum of the right hand at the base of the middle and ring finger. Course Orders Ordered: ED Orders 01/23/23 17:26 XR hand RT min 3V Stat Vital Signs Vital signs: Vital Signs - 8 hr 01/23/23 17:24 Temperature 97.5 F L Pulse Rate 82 Respiratory Rate 18 Blood Pressure 175/82 H Pulse Oximetry 100 Oxygen Delivery Method Room Air Medical Decision Making Imaging Data Extremity x-ray #1: Radiologist's Impression: PROCEDURE:? XR HAND RT MIN 3V ? INDICATIONS:? hand injury ? TECHNIQUE:? 3 views of the hand(s) acquired.? ? COMPARISON:? None. ? FINDINGS:? ? Bones:? No fractures or dislocations.? Carpal bones are normally aligned.? No suspicious bony lesions.? ? Soft tissues:? No suspicious soft tissue calcifications.? ? ? IMPRESSION:? No acute fracture. No osseous lesion. If symptoms and/or clinical suspicion for pathology persist, further assessment with repeat, or advanced imaging (e.g., CT, MRI, or bone scan) may be helpful for further assessment. [facility] Narrative Medical decision making narrative: No fractures were noted on the x-rays. She is neurovascularly intact. There are no skin changes requiring intervention. She was given an Girma bandage that she could use to wrap her hand as needed for comfort. She can take Tylenol or ibuprofen. No further workup required in the emergency department. She was given return precautions and follow-up instructions. She expressed understanding and agreement. Discharge Plan Departure Patient Disposition: Home Clinical Impression: Contusion of hand, right Instructions: DI for Contusion, How To Perform RICE (Rest, Ice, Compress, Elevate), How to Apply an Elastic Wrap on Wrist Activity Restrictions/Additional Instructions: Can continue to use ice on your hand. The elastic bandage is for your comfort. You can take Tylenol and/or ibuprofen for any pain. Return to the emergency department for new or worsening symptoms. Prescriptions: No Action prenat.vits,leeanne,[id number] Tablet 1 tab PO DAILY Referrals: Christin Monterroso ARNP [Primary Care Provider] - Stand Alone Forms: Patient Portal/API
== END 2023-01-23 18:22 | disposition home or self-care (01) ==
PROVIDERS: Emergency Provider Emergency Medicine; PCP Internal Medicine
DX: S60.221A Contusion of right hand, initial encounter (principal); W18.30XA Fall on same level, unspecified, initial encounter; O09.893 Supervision of other high risk pregnancies, third trimester; O26.613 Liver and biliary tract disorders in pregnancy, third trimester; Z3A.37 37 weeks gestation of pregnancy
CPT/HCPCS: 73130; 76819; 99282; 99283

== ENCOUNTER 2023-01-27 19:19 | Inpatient (IN) | payer OTHER, MEDICAID, SELFPAY ==
--- NOTE | 2023-01-27 20:04 | P.HPOB_ITS ---
OB HPI Date/Time Date of admission: 01/27/23 Date Patient Seen: 01/27/23 Time Patient Seen: 20:04 History of Present Condition Chief complaint: OB : 3 Para: 0 Estimated Date of Delivery: 02/14/23 Estimated Gestational Age (weeks): 37w3d Narrative: Jacqueline Cummings is a 32 year old female by conception dating, ultrasound and LMP. She has a history of 2 early miscarriages and got this time using letrozole. Has been taking LDASA throughout her due to nulliparity and history of miscarriage. Started taking ursodiol last week due to itching of hands and feet; still awaiting bile acid labs drawn on 01/20/2023. Pre-eclampsia panel at the same time revealed normal AST, elevated ALT, PCR of 253, otherwise normal labs. Otherwise had an uncomplicated until 36 weeks. Jacqueline is here tonight for cervical ripening and induction of labor for gestational hypertension. She had mild contractions this weekend. Rested a lot. Consents to bunn bulb and misoprostol tonight. Asks for benadryl to be available if she needs help sleeping. Excited to meet her son, Chester. Indications Indication for induction OB: gestational HTN/pre-eclampsia and other (brewing cholestasis (labs due back 01/28-01/30)) History of Present care: good care, initiated at week # (10), number of visits (8) and pounds weight gain (35) Dating criteria: LMP confirmed by 1st trimester US (and conception dating) Ultrasounds: normal 1st trimester US and abnormal US findings (initially; sent to [facility] for confirmation of normal anatomy at 24 weeks) Abnormal ultrasound findings: Questionable lobulated contour of stomach which was resolved by the end of the study and is of indeterminate significance. Obstetrical complications: gestational hypertension and other (possible intrahepatic cholestasis of ) Medical complications: none Preadmission Labs Blood type: O (+) positive -: Antibody screen: negative, Cystic fibrosis screen: unknown, GBS status: negative, HBsAG: negative, HIV: negative, HSV 1: unknown, HSV 2: unknown and RPR/VDLR: negative -: Chlamydia screen: not detected and Gonorrhea screen: not detected -: Rubella: immune and Varicella: immune HCT: 37.2 (at 28 weeks) HCAB: negative PAP: Normal (2019) Quad screen: Normal (MsAFP negative) Cell-free DNA: NIPS Urine: negative urine culture at 15 weeks 1 hr GTT: 122 Prior (ies) History: SAB x 2 Evaluation Evaluation Baseline heart rate: 135 Variability: Moderate (11-25) monitor accelerations: Present Monitor Decelerations: Absent Contraction Frequency (minutes): 7 (irregular, mostly painless) Uterine Contraction Intensity: Mild Status: Category l Dilation (cm): 1 Effacement (%): 50 Dilation: 1-2 cm Effacement: 40-50% station: -2 Position of cervix: mid Consistency: medium Cerna score: 5 Comments: Intact membranes ON LICENSE OF [facility] Medical History (Updated 01/27/23 @ 22:20 by Laura Willams CNM, [place]) Acne (~2009) History of recurrent miscarriages Painful menstrual periods (~2007) Plantar warts (~1997) Surgical History History of third molar tooth extraction (~2009) History of use of contraceptive intrauterine device (IUD) (~05/25/13) Hx of LASIK Family History Father Age: 53 Coronary artery disease, angina presence unspecified, unspecified vessel or lesion type, unspecified whether [place] or transplanted heart High cholesterol Essential hypertension Mother Age: 52 [place] syndrome Uncomplicated asthma, unspecified asthma severity [place] Grandfather Essential hypertension High cholesterol Heart disease Grandmother Age: 80 Diabetes mellitus Grandmother Heart attack Breast cancer Social History marital status: number of children: 0 household members: spouse lives independently: Yes housing: house pets and animals: Yes (1 dog) education level: college (sally's degree) occupational status: employed current occupational exposures/hazards: No special robb needs: No travel history: over 6 months ago seatbelt use: always water heater temp set < 120 deg: Yes working smoke detector in home: Yes fire extinguisher in home: Yes carbon monox detector in home: Yes firearms in home: Yes firearms unloaded and locked: Yes do you feel safe at home: Yes Smoking Status: Never smoker second hand exposure: No alcohol intake: former (rarely, only when not or attempting to get so) substance use type: does not use during the past year weight has: increased > 10 lbs well-balanced diet: daily or most days daily servings fruits/ve or more times/day caffeine: Yes (1 cup/day, aware of 200mg limit) Type(s) of exercise: walking frequency: daily duration: 45-60 minutes/day Meds Home Medications and Allergies Home Medications Medication Instructions Recorded Confirmed Type prenat.vits,leeanne,qoe-[id number] 1 tab PO DAILY 06/25/22 01/28/23 History Allergies Allergy/AdvReac Type Severity Reaction Status Date / Time grass pollen Allergy Mild Verified 01/28/23 19:52 Latex, Natural Rubber AdvReac Mild ITCHING Verified 01/28/23 19:52 melon AdvReac Mild Verified 01/28/23 19:52 Review of Systems Review of Systems Narrative: Negative except as mentioned in HPI OB Exam Vital signs Blood Pressure: 134/80 Pulse Rate: 84 Respiratory Rate: 16 Temperature: 38.5 F Narrative Exam Narrative: SPO2 98% Cardio Rate: regular rate Rhythm: regular rhythm Heart Sounds: normal, physiologic split S2 Extremities Lower extremity: Yes edema (none) GI Inspection: normal to inspection External Female Exam: Yes normal external appearance Speculum Exam - Cervix: normal appearance of the cervix and cervical os open OB/External & Speculum: cervical os open Presentation: vertex Estimated Weight (lbs): 7 Objective Labs 01/27/23 20:30 01/27/23 20:30 Assessment and Plan Assessment and Plan Assessment and Plan narrative: at 37w3d by conception, LMP and 10 week ultrasound GBS neg Rh positive Gestational hypertension Awaiting confirmation of intrahepatic cholestasis of Latex allergy FHR Cat 1 1. Admit to L&D for cervical ripening. Plan bunn placement and concurrent misoprostol given sublingually. 2. Continuous monitoring and BP checks q 2-4 hours 3. Pre-eclampsia panel on admission 4. Benadryl ordered to assist with sleep PRN 5. Anticipate bunn bulb out by morning, start pitocin at that time.
[2023-01-27 20:55] VITALS: BP 131/75
[2023-01-27 21:06] LABS: Add Manual Diff / Slide Review NO; Basophils Absolute Auto 100 /uL (0-100); Basophils Percent Auto 0.5 % (0-2); Eosinophils Absolute Auto 100 /uL (0-450); Eosinophils Percent Auto 0.6 % (2-4); Hemoglobin 12.1 g/dL (12.0-16.0); Lymphocytes Absolute Auto 1600 /uL (1100-4500); Mean Corpuscular HGB Conc 33.7 % (30-36); Mean Corpuscular Hemoglobin 29.9 PG (26-34); Mean Corpuscular Volume 88.6 fL (80-100); Monocytes Absolute Auto 600 /uL (0-900); Monocytes Percent Auto 5.7 % (3-14); Neutrophils Absolute Auto 8000 /uL (1500-7000); Neutrophils Percent Auto 77.2 % (50-75); Platelet Count 277 X10^3/uL (150-400); Red Blood Cell Count 4.06 X10^6/uL (4.0-5.2); Red Cell Distribution Width 13.8 % (11.6-14.8); White Blood Cell Count 10.3 X10^3/uL (4.5-11.0)
[2023-01-27 21:13] LABS: Alanine Aminotransferase 25 IU/L (<35); Albumin 3.2 g/dL (3.5-5.0); Albumin Globulin Ratio 0.9 (1.0-2.8); Alkaline Phosphatase 171 U/L (38-126); Aspartate Aminotransferase 24 IU/L (14-36); BUN Creatinine Ratio 19.6 (6-22); Bilirubin Total 0.3 mg/dL (0.2-1.3); Blood Urea Nitrogen 9 mg/dL (7-17); Calcium 8.9 mg/dL (8.4-10.2); Carbon Dioxide 20 mmol/L (22-32); Chloride 106 mmol/L (98-107); Estimated Glomerular Filt Rate > 60 mL/min (>60); Globulin 3.4 g/dL (1.7-4.1); Glucose 87 mg/dL (70-100); HEMOLYSIS < 15 (0-50); Potassium 3.9 mmol/L (3.4-5.1); Sodium 133 mmol/L (137-145); Total Protein 6.6 g/dL (6.3-8.2); Uric Acid 4.6 mg/dL (2.5-6.2)
[2023-01-27 21:20] LABS: Creatinine Urine Random 48.7 mg/dL; Protein (Total) Urine Random 13 mg/dL (0-12); Protein Creatinine Ratio Urine 0.26 GRAM/24H
[2023-01-27 22:21] VITALS: BP 134/80; PULSE 84; RESP 16; TEMP 3.6; TEMP 38.5
[2023-01-27] MEDS: LACTATED RINGERS 1,000 ML 100 ML IV (22:51)
[2023-01-27] MEDS: diphenhydrAMINE 50 MG/ML VIAL 25 MG IV (22:51)
[2023-01-27] MEDS: miSOPROStoL 25 MCG TABLET 50 MCG PO (22:51)
[2023-01-28] MEDS: MORPHINE 10 MG/ML INJ IM (03:53)
[2023-01-28] MEDS: hydrOXYzine 50 MG/ML INJ 25 MG IM (03:53)
[2023-01-28] MEDS: OXYTOCIN PREMIX 30 UNIT/500 ML PLAST..BAG IV (08:27)
[2023-01-28] MEDS: LACTATED RINGERS 1,000 ML 100 ML IV ×2 (08:32→17:35)
--- NOTE | 2023-01-28 11:50 | PM.OBPNLAB ---
Date/Time Date Patient Seen: 01/28/23 Time Patient Seen: 09:45 Pain Control Pain control: tolerating well Comments: Had lots of back pain with contractions overnight, managed well with tub and movement/standing. Lying in bed was uncomfortable. Contractions petered out and she slept 2-3 hours overnight. Feeling well; had breakfast this morning. Is no longer noticing itching on palms or soles. Pelvic Exam Comments: Not reexamined; bunn catheter still in place (35 mL balloon). Contractions Date/Time contractions began: Irregular with misoprostol 01/28 0100 Contractions on admission: none Monitor mode: External Pitocin rate (mU/min): 3 Contraction pattern: Irregular Contraction intensity: Mild Status status: Category ll (blue) Heart Rate Baseline: 135 Monitor Accelerations: Present Monitor Decelerations: Variable Monitor Variability: Moderate Assessment and Plan Assessment: induction ongoing Plan: continuous present management Comments: at 37w4d IOL for GHTN Bile acids normal Rh positive GBS neg FHR Cat 1 (blue by 5 tier system) Latex allergy Discuss irregular but sometimes too frequent contractions with 50 mcg misoprostol. Low-dose pitocin initated for cervical ripening. Bile acid lab returned. Bile acids 5.9 (WNL). Ursodiol discontinued. Review importance of movement to help baby get into good position for labor. Anticipate NSVB.
--- NOTE | 2023-01-28 19:15 | PM.OBPNLAB ---
Date/Time Date Patient Seen: 01/28/23 Time Patient Seen: 17:45 Pain Control Pain control: tolerating well Comments: Not feeling much with pitocin as high as 19 mu/min. Frustrated. Tears, feeling lack of control of this process. After deliberating for an hour, decided on AROM. When CNM unable to perform, decided on lower dose of misoprostol. Pelvic Exam Dilation (cm): 3.5 Effacement (%): 75 station: -2 Amniotic membrane status: Intact Comments: AROM attempted at 1845. Contractions Date/Time contractions began: Contractions irregular, coming in sets, but mostly painless. Contractions on admission: none Monitor mode: External Pitocin rate (mU/min): 19 Contraction pattern: Irregular Contraction intensity: Mild Status status: Category l Heart Rate Baseline: 135 Monitor Accelerations: Present Monitor Decelerations: Absent Monitor Variability: Moderate Assessment and Plan Assessment: induction ongoing ( with gestational hypertension) Comments: Normotensive FHR Cat 1 GBS neg Rh positive Latex allergy Plan: Reviewed options for continuing induction of labor including AROM, misoprostol, cervadil. AROM attempted. Unable to break bag despite easily manipulated. Reviewed options and r/b/a again. Misoprostol 25 mcg SL ordered to use as often as q2 hours. Continuous monitoring.
[2023-01-28] MEDS: miSOPROStoL 25 MCG TABLET PO ×2 (19:30→21:39)
--- NOTE | 2023-01-29 00:54 | PM.OBPNLAB ---
Date/Time Date Patient Seen: 01/29/23 Time Patient Seen: 00:00 Pain Control Pain control: tolerating well Pelvic Exam Dilation (cm): 4 Effacement (%): 75 station: -1 Amniotic membrane status: Leaking Contractions Monitor mode: External Contraction pattern: Irregular Contraction intensity: Mild Status status: Category l (blue) Heart Rate Baseline: 120 Assessment and Plan Assessment: induction ongoing Plan: continuous present management Comments: Objective: BP: 131/66 Pulse: 78 Temp: 36.2C O2 sat: 98% Assessment: at 37w4d Ongoing cervical ripening IOL for GHTN Normotensive Early labor Mild contractions Coping well with contractions GBS negative FHR Cat I with continuous EFM Clear leaking amniotic fluid Latex allergy Plan: Administered 50mcg SL misoprostol Anticipate continued progress of IOL and NSVB Continuos monitoring Reassess in 4 hours or sooner if indicated Continue to monitor for PreE s/sx
[2023-01-29] MEDS: miSOPROStoL 25 MCG TABLET 50 MCG PO ×2 (01:04→05:09)
[2023-01-29] MEDS: ACETAMINOPHEN 325 MG TABLET 975 MG PO (07:55)
--- NOTE | 2023-01-29 11:03 | PM.OBPNLAB ---
Date/Time Date Patient Seen: 01/29/23 Time Patient Seen: 09:30 Pain Control Pain control: tolerating well Comments: Jacqueline thrilled she's in active labor. Working hard with excellent support from Ayad. Got in the tub for approx 30 minutes, now out working through contractions standing and leaning on bed. Requests SVE. Still leaking fluid, baby feeling lower. Pelvic Exam Dilation (cm): 6 Effacement (%): 80 station: -1 Amniotic membrane status: Leaking Comments: soft, anterior cervix Contractions Date/Time contractions began: Painful contractions started 0600. Monitor mode: External Pitocin rate (mU/min): 0 Contraction pattern: Irregular Contraction intensity: Mild Status status: Category l (blue) Heart Rate Baseline: 145 Monitor Accelerations: Present Monitor Decelerations: Absent Monitor Variability: Moderate Assessment and Plan Assessment: active labor Plan: continuous present management Comments: at 37w5d IOL for GHTN Normotensive with normal urine output Active labor GBS neg Rh pos Latex allergy ROM at 0100 FHR Cat 1 Continue present management. Active management achieved with misoprostol for cervical ripening. Repeat pre-eclampsia labs in indicated Consider augmentation PRN Anticipate NSVB.
--- NOTE | 2023-01-29 14:26 | PM.OBPNLAB ---
Date/Time Date Patient Seen: 01/29/23 Pain Control Pain control: tolerating well Pelvic Exam Dilation (cm): 8 Effacement (%): 90 station: 0 Amniotic membrane status: Ruptured Contractions Monitor mode: External Contraction pattern: Regular Contraction intensity: Strong/Firm Status status: Category l (blue) Heart Rate Baseline: 145 Monitor Accelerations: Present Monitor Decelerations: Absent Monitor Variability: Moderate Assessment and Plan Comments: O: BP:133/87 Pulse: 102bpm Temp: 36.2C Assessment: at 37w5d IOL d/t GHTN Active labor Normotensive - normal urine output Coping well GBS Negative Afebrile ROM x 12hrs FHR Cat I Plan: Continue expectant management of labor Expected NSVB Preclampsia repeated as needed
--- NOTE | 2023-01-29 19:01 | PM.OBPNLAB ---
Date/Time Date Patient Seen: 01/29/23 Time Patient Seen: 18:45 Pain Control Pain control: other Comments: Jacqueline getting tired. Has been working hard, and is disappointed that her cervix has not changed. Pelvic Exam Dilation (cm): 8.5 Effacement (%): 90 station: 0 Amniotic membrane status: Ruptured Comments: Unchanged from previous exam. Contractions Monitor mode: External Contraction pattern: Regular Contraction intensity: Strong/Firm Status status: Category l (blue) Comments: Intermittent monitoring Assessment and Plan Assessment: active labor and induction ongoing Plan: other Comments: at 37w5d GBS neg IOL for GHTN, normotensive ROM x 18 hours, afebrile Prolonged active phase Reassuring FHR by intermittent monitoring Recommend epidural for rest and to encourage labor. Will recommend pitocin if no change in 2 hours Anticipate NSVB.
[2023-01-29] MEDS: FENT 2MCG/ML BUPIV 0.125% EPI 200 MCG/100 ML PLAST..BAG 10 MCG EPIDURAL (20:10)
[2023-01-29] MEDS: LACTATED RINGERS 1,000 ML 999 ML IV (21:17)
--- NOTE | 2023-01-29 22:16 | PM.OBPNLAB ---
Date/Time Date Patient Seen: 01/29/23 Time Patient Seen: 22:19 Pain Control Pain control: epidural Comments: Jacqueline has had good rest with epidural. Says she was forcing contractions prior to epidural - would sort of push and get them started. Unsure if that matters. Pelvic Exam Dilation (cm): 7 Effacement (%): 100 station: 0 Amniotic membrane status: Ruptured Contractions Monitor mode: External Contraction pattern: Regular Contraction intensity: Strong/Firm Status status: Category l (blue) Heart Rate Baseline: 135 Monitor Accelerations: Absent Monitor Decelerations: Late (shallow) Monitor Variability: Moderate Comments: position now KALI; was CK this AM and OP during the day. Assessment and Plan Assessment: active labor (prolonged) Plan: begin patient augmentation Comments: at 37w5d IOL for GHTN, normotensive Epidural for pain management Prolonged active phase of labor ROM x 21 hours, afebrile FHR Cat 2 Start pitocin low dose protocol if FHR allows. CBC and CMP ordered at 1900; not yet drawn. Lab coming now to draw. Consult with on-call OB ([place]) - left voicemail message updating about current status and plan of care.
[2023-01-29 23:03] LABS: Add Manual Diff / Slide Review NO; Basophils Absolute Auto 100 /uL (0-100); Basophils Percent Auto 0.3 % (0-2); Eosinophils Absolute Auto 0 /uL (0-450); Hematocrit 34.7 % (36-46); Hemoglobin 11.6 g/dL (12.0-16.0); Lymphocytes Absolute Auto 900 /uL (1100-4500); Lymphocytes Percent Auto 4.1 % (25-40); Mean Corpuscular HGB Conc 33.3 % (30-36); Mean Corpuscular Hemoglobin 29.8 PG (26-34); Mean Corpuscular Volume 89.3 fL (80-100); Monocytes Absolute Auto 800 /uL (0-900); Monocytes Percent Auto 3.6 % (3-14); Neutrophils Absolute Auto 21300 /uL (1500-7000); Platelet Count 247 X10^3/uL (150-400); Red Blood Cell Count 3.88 X10^6/uL (4.0-5.2); Red Cell Distribution Width 13.8 % (11.6-14.8); White Blood Cell Count 23.1 X10^3/uL (4.5-11.0)
[2023-01-29] MEDS: OXYTOCIN PREMIX 30 UNIT/500 ML PLAST..BAG IV (23:09)
[2023-01-29 23:21] LABS: Alanine Aminotransferase 22 IU/L (<35); Albumin 3.1 g/dL (3.5-5.0); Albumin Globulin Ratio 0.9 (1.0-2.8); Alkaline Phosphatase 170 U/L (38-126); Aspartate Aminotransferase 22 IU/L (14-36); BUN Creatinine Ratio 11.1 (6-22); Bilirubin Total 0.9 mg/dL (0.2-1.3); Blood Urea Nitrogen 6 mg/dL (7-17); Calcium 8.6 mg/dL (8.4-10.2); Carbon Dioxide 16 mmol/L (22-32); Chloride 102 mmol/L (98-107); Estimated Glomerular Filt Rate > 60 mL/min (>60); Globulin 3.5 g/dL (1.7-4.1); Glucose 99 mg/dL (70-100); HEMOLYSIS < 15 (0-50); Potassium 3.7 mmol/L (3.4-5.1); Sodium 130 mmol/L (137-145); Total Protein 6.6 g/dL (6.3-8.2)
[2023-01-30] MEDS: FENT 2MCG/ML BUPIV 0.125% EPI 200 MCG/100 ML PLAST..BAG 10 MCG EPIDURAL (02:37)
--- NOTE | 2023-01-30 02:42 | P.PNOB_ITS ---
Date/Time Date Patient Seen: 01/30/23 Time Patient Seen: 02:42 Pain Control Pain control: epidural Comments: Jacqueline starting to feel contractions more intensely. Pushed epidural button. Pelvic Exam Dilation (cm): 9 Effacement (%): 100 station: 0 Amniotic membrane status: Ruptured Comments: Vital signs: BP: 126/78 HR: 109 bpm SpO2: 99% Temp: 99.2 F oral Labs: WBC on admission: 10 WBC 01/29: 23 Pre-eclampsia labs normal/stable Contractions q 5-6 min MVU 0232 - 0242: 35+35 + 25 = 95 MVU 0247 - 0257: 20 +25 = 50 MVU 0 - 0258: 20 + 25 + 30 = 75 Contractions Monitor mode: External Contraction pattern: Regular Contraction intensity: Strong/Firm Status status: Category l (blue) Heart Rate Baseline: 150 Monitor Accelerations: Absent Monitor Decelerations: Late and Variable (nonrecurrent) Monitor Variability: Moderate Assessment and Plan Assessment: induction ongoing Comments: at 37w6d IOL for GHTN, normotensive ROM x 25 hours, afebrile but elevated WBC IUPC in place; inadequate contractions GBS negative FHR Cat 2 Prolonged active phase IUPC inserted Reviewed risk of infection, has not met criteria but plan to start antibiotics based on ROM timing and elevated WBCs. Amp q 6 hours and Gent x 1 dose for 24 hours ordered now. Discussed slow progress of dilation and concern for infection with Nicole. Reviewed that if progress slows, may be recommended. Attempted to reach [facility] [employer] OB to review case/strip but no answer so Dr. Karimi also called by RN. No answer. Pitocin augmentation continued on very low dose. Anesthesia called due to increased pain.
[2023-01-30] MEDS: AMPICILLIN 2,000 MG in SODIUM CHLORIDE 0.9% 100 ML 200 MG IV (03:27)
[2023-01-30] MEDS: GENTAMICIN 350 MG in SODIUM CHLORIDE 0.9% 100 ML 108.75 MG IV (03:52)
--- NOTE | 2023-01-30 05:33 | PM.OBPNLAB ---
Date/Time Date Patient Seen: 01/30/23 Time Patient Seen: 05:15 Pain Control Pain control: epidural Pelvic Exam Dilation (cm): 9.5 Effacement (%): 100 station: 0 Amniotic membrane status: Ruptured Contractions Monitor mode: External Contraction pattern: Regular Contraction intensity: Strong/Firm Status status: Category l (blue) Heart Rate Baseline: 145 Monitor Accelerations: Present Monitor Decelerations: Late Monitor Variability: Moderate Comments: Periods of minimal variability with other periods of moderate variability. Late decels, not recurrent. Assessment and Plan Assessment: induction ongoing Plan: Comments: at 37w6d Prolonged active phase Suspected IAI; antibiotics administered IOL for GHTN with normal PET panel Dr. Karimi reviewed FHR, recommended section. Antibiotics ordered per her recommendation.
--- NOTE | 2023-01-30 05:49 | PM.PROC.1 ---
Procedures Date/Time Date of procedure: 01/30/23 Time of procedure: 06:00 General Procedure description: Press Tender Incendiary Grenade Documentation I assisted the OB cotton seed culler in the section for this patient. My responsibilities included retracting and suctioning, providing fundal pressure during delivery and following with suture during closure. Please see the OB's note for details of the surgery.
--- NOTE | 2023-01-30 05:54 | P.CONS_ITS ---
History of Present Illness Consult details Date Patient Seen: 01/30/23 Time Patient Seen: 05:54 Chief complaint: OB Reason for consult: Prolonged active stage of labor, nonreassuring tracing Requesting provider: Laura Willams Narrative: Patient is a 32-year-old 3 para 0 who presented on January 27, 2023 for induction of labor due to gestational hypertension. She was at 37-,3/7 weeks gestation. She also has some lab work to rule out cholestasis. She initially received a Aparicio catheter and misoprostol for an unfavorable cervix. She then was given low-dose Pitocin due to frequent contractions with misoprostol. Artificial rupture of membranes was performed on January 28, 2023. She progressed into active labor. At 6:30 p.m. on January 29, 2023 she was 8 cm. She received an epidural for pain management. Several attempts to start Pitocin were made but there were recurrent late decelerations. Patient progressed to 9 cm. On review of the tracing. The baseline heart rate is in the 140s. She has intermittent periods of moderate orzw-zk-dyxb variability. There are periods of minimal afgf-xu-rmlv variability. She is having recurrent late decelerations. She did receive 1 dose of ampicillin and gentamicin. Meds Home Medications and Allergies Home Medications Medication Instructions Recorded Confirmed Type prenat.vits,leeanne,syw-golh-qdtbs 1 tab PO DAILY 06/25/22 01/28/23 History Allergies Allergy/AdvReac Type Severity Reaction Status Date / Time grass pollen Allergy Mild Verified 01/28/23 19:52 Latex, Natural Rubber AdvReac Mild ITCHING Verified 01/28/23 19:52 melon AdvReac Mild Verified 01/28/23 19:52 Exam Narrative Exam Narrative: Generally: Patient lying in bed, comfortable with epidural, no acute distress Estimated weight: 7 lb VE: 8-9cm/90/-1/0 Objective Labs 01/31/23 06:20 01/29/23 22:49 Labs: Laboratory Results - last 24 hr 01/29/23 01/29/23 22:49 22:49 WBC 23.1 H RBC 3.88 L Hgb 11.6 L Hct 34.7 L MCV 89.3 MCH 29.8 MCHC 33.3 RDW 13.8 Plt Count 247 Neut % (Auto) 92.0 H Lymph % (Auto) 4.1 L [place] % (Auto) 3.6 Eos % (Auto) 0.0 L Baso % (Auto) 0.3 Neut # (Auto) 19604 H Lymph # (Auto) 900 L [place] # (Auto) 800 Eos # (Auto) 0 Baso # (Auto) 100 Sodium 130 L Potassium 3.7 Chloride 102 Carbon Dioxide 16 L BUN 6 L Creatinine 0.54 Estimated GFR > 60 BUN/Creatinine Ratio 11.1 Glucose 99 Calcium 8.6 Total Bilirubin 0.9 AST 22 ALT 22 Alkaline Phosphatase 170 H Total Protein 6.6 Albumin 3.1 L Globulin 3.5 Albumin/Globulin Ratio 0.9 L PFSH Medical History (Updated 01/27/23 @ 22:20 by Laura Willams CNM, [place]) Acne (~2009) History of recurrent miscarriages Painful menstrual periods (~2007) Plantar warts (~1997) Surgical History History of third molar tooth extraction (~2009) History of use of contraceptive intrauterine device (IUD) (~05/25/13) Hx of LASIK Family History Father Age: 53 Coronary artery disease, angina presence unspecified, unspecified vessel or lesion type, unspecified whether [place] or transplanted heart High cholesterol Essential hypertension Mother Age: 52 [place] syndrome Uncomplicated asthma, unspecified asthma severity [place] Grandfather Essential hypertension High cholesterol Heart disease Grandmother Age: 80 Diabetes mellitus Grandmother Heart attack Breast cancer Social History marital status: number of children: 0 household members: spouse lives independently: Yes housing: house pets and animals: Yes (1 dog) education level: college (sally's degree) occupational status: employed current occupational exposures/hazards: No special robb needs: No travel history: over 6 months ago Safety seatbelt use: always water heater temp set < 120 deg: Yes working smoke detector in home: Yes fire extinguisher in home: Yes carbon monox detector in home: Yes firearms in home: Yes firearms unloaded and locked: Yes do you feel safe at home: Yes Tobacco & Substance Use Smoking Status: Never smoker second hand exposure: No alcohol intake: former (rarely, only when not or attempting to get so) substance use type: does not use Diet and Exercise during the past year weight has: increased > 10 lbs well-balanced diet: daily or most days daily servings fruits/ve or more times/day caffeine: Yes (1 cup/day, aware of 200mg limit) Type(s) of exercise: walking frequency: daily duration: 45-60 minutes/day Assessment & Plan Assessment & Plan narrative: Assessment: 32-year-old 3 para 0 at 37-,6/7 weeks gestation with a prolonged active phase of labor intolerance of labor Plan: Primary low-transverse section The risks, benefits, and alternatives to the procedure were explained to the patient. The risks including bleeding, infection, injury to the bowel, bladder, or ureters. She understands these risks and agrees to proceed. A full par Q was held and consent form was signed. Pediatrics and Respiratory therapy notify 2 g of Ancef and 500 mg of azithromycin given Time Spent With Patient Time with patient: less than 30 minutes
--- NOTE | 2023-01-30 05:55 | PM.PREOP ---
Pre-operative Note COVID-19 Criteria for continued procedure: Delay expected to result in less-positive ultimate med/surg outcome Interval Note History & Physical reviewed/Exam performed by Physician: Yes Changes to H&P: No H&P completed within 30 days and has changed as indicated here:: 01/27/22
[2023-01-30] MEDS: CEFAZOLIN VIAL 1 GM in SODIUM CHLORIDE 0.9% 100 ML IV (06:15)
[2023-01-30] MEDS: AZITHROMYCIN 500 MG in DEXTROSE 5% IN WATER 250 ML 250 MG IV (06:23)
--- NOTE | 2023-01-30 06:33 | SUR.OPER ---
Supine on padded OR bed, head on pillow, arms secured on padded arm boards at <90 degrees abduction, legs uncrossed, safety belt at thigh, tape over blanket over lower legs.
[2023-01-30 07:32] VITALS: BP 133/76; PULSE 88; RESP 18; TEMP 36.6; O2SAT 98
[2023-01-30 07:37] VITALS: BP 133/76; PULSE 84; RESP 18; O2SAT 96
[2023-01-30 07:42] VITALS: BP 133/72; PULSE 86; RESP 16; TEMP 36.9; O2SAT 98
--- NOTE | 2023-01-30 09:16 | P.OP_ITS ---
Operative Date/Time/Diagnoses Date of procedure: 01/30/23 Time of procedure: 07:15 Pre-op diagnosis: 37+3 weeks gestation intolerance of labor Post-op diagnosis: same Procedure & Clinicians Procedure: Primary low-transverse section Same procedure as scheduled: Yes Indications: intolerance of labor Surgeon: Dayana Karimi Click Yes if Unassisted: No Professional Architect: Laura Willams Reason for Professional Architect: The funeral assistant was necessary to retract upon entry into the abdomen and uterus. She assisted with fundal pressure upon delivery of the . She assisted with closure with retraction and clipping of suture. Anesthesia Type: Epidural (With Duramorph) Operative Notes Findings: Live male infant in the direct occiput posterior presentation Normal tubes and ovaries cord pH 7.307 Closure Type: primary Specimen(s): cord blood and cord pH Intraoperative meds administered: Duramorph, Ketorolac and Pitocin Applied: Catheter (To continuous drainage) Estimated Blood Loss (mL): 100 Blood products transfused: none Procedure in detail: After informed consent was obtained, the patient was taken to the operating room where she was placed in the dorsal supine position with a leftward tilt. She was prepped and draped in the usual sterile fashion. A time-out was performed. Once epidural analgesia was found to be adequate, a Pfannenstiel skin incision was made 2 fingerbreadths above the pubic symphysis, and carried through to the underlying layer of fascia. The fascia was nicked in the midline, and the incision extended bilaterally with the Steve scissors. The superior aspect of the fascial incision was grasped with the Missy clamps, elevated, and the underlying rectus muscles were dissected off sharply and bluntly. The inferior aspect of the fascial incision was grasped with the Missy clamps, elevated, and the underlying rectus muscles dissected off sharply and bluntly. The rectus muscles were in the midline. The peritoneum was identified, grasped between 2 hemostats, and entered sharply with the Metzenbaum scissors. This incision was extended superiorly and inferiorly with good visualization of the bladder. The bladder blade was inserted. The vesicouterine peritoneum was identified, grasped with a pickup, and entered sharply with the Metzenbaum scissors. This incision was extended bilaterally, and the bladder flap created digitally. The bladder blade was reinserted. The lower uterine segment was incised in a transverse fashion with the scalpel. Upon entering the amniotic sac there was minimal amount of amniotic fluid. The was found to be in the direct occiput posterior presentation. The head was delivered without difficulty. The nose and mouth were bulb suctioned. The remainder of the body delivered without difficulty. After 1 minute, the cord was double clamped and cut. A piece of cord for cord pH was obtained. Cord bloods were obtained. Pitocin was given in the IV fluids. The placenta was delivered by expression. The uterus was cleared of all clots and debris. The placenta was cultured on the maternal and side, with aerobic and anaerobic cultures. The uterine incision was repaired with 1. Chromic in a running interlocking fashion. A second layer of the same suture was used for hemostasis. The tubes and ovaries were examined and were found to be normal. The gutters were cleared of all clots and debris. The bladder flap was reapproximated using 2-0 Vicryl in a running fashion. The parietal peritoneum was closed using 2-0 Vicryl in a running fashion. The fascia was reapproximated using 0 Vicryl in a running fashion. The subcutaneous layer was copiously irrigated with warm normal saline. Five simple interrupted sutures with 3-0 Vicryl were placed to reapproximate the subcutaneous layer. The skin was closed with 4-0 Monocryl in a subcuticular fashion. Steri-Strips and an Aquacel dressing were placed. The uterus was expressed of a small amount of old blood. The uterus was marked at U -2. Sponge, lap, and instrument counts were correct x2. The patient tolerated the procedure well, and was taken to PACU in stable condition. Complications: none Baby 1: Infant Gender: Male Presentation: vertex Position: Occiput Posterior Placental Delivery Description: Expressed Cord Vessel Description: 3 Vessels and Clamped/Cut (after one minute) score (1 min): 9 score (5 min): 9 weight: 7 lb 1.6 oz Post-operative Condition: stable Disposition: PACU Aftercare: routine postop
[2023-01-30] MEDS: ACETAMINOPHEN 325 MG TABLET 650 MG PO ×3 (10:00→23:34)
[2023-01-30] MEDS: KETOROLAC 30 MG/ML VIAL IV ×3 (13:22→23:33)
[2023-01-30] MEDS: DOCUSATE 100 MG CAPSULE PO (22:05)
[2023-01-31] MEDS: KETOROLAC 30 MG/ML VIAL IV (05:18)
[2023-01-31] MEDS: ACETAMINOPHEN 325 MG TABLET 650 MG PO ×3 (05:19→16:55)
[2023-01-31 06:54] LABS: Add Manual Diff / Slide Review NO; Basophils Absolute Auto 0 /uL (0-100); Basophils Percent Auto 0.1 % (0-2); Eosinophils Absolute Auto 100 /uL (0-450); Eosinophils Percent Auto 0.4 % (2-4); Hematocrit 29.5 % (36-46); Lymphocytes Absolute Auto 1500 /uL (1100-4500); Lymphocytes Percent Auto 8.9 % (25-40); Mean Corpuscular HGB Conc 33.9 % (30-36); Mean Corpuscular Hemoglobin 30.2 PG (26-34); Mean Corpuscular Volume 89.1 fL (80-100); Monocytes Absolute Auto 800 /uL (0-900); Monocytes Percent Auto 4.4 % (3-14); Neutrophils Absolute Auto 14700 /uL (1500-7000); Neutrophils Percent Auto 86.2 % (50-75); Platelet Count 238 X10^3/uL (150-400); Red Blood Cell Count 3.31 X10^6/uL (4.0-5.2); Red Cell Distribution Width 13.6 % (11.6-14.8)
[2023-01-31] MEDS: IBUPROFEN 600 MG TABLET PO ×2 (11:44→16:56)
[2023-01-31] MEDS: DOCUSATE 100 MG CAPSULE PO (11:45)
--- NOTE | 2023-01-31 15:42 | P.DS_ITS ---
Discharge Providers Provider Date of admission: 01/27/23 19:19 Discharge Date: 01/31/23 Primary care physician: JOLANTA Sheets Consults: 01/27/23 20:01 Consult to Anesthesiology Urgent Comment: Consulting Provider: Anesthesiologist Reason for consultation: Epidural Has provider been notified: No 01/28/23 19:22 Consult to Anesthesiology Urgent Comment: Consulting Provider: Anesthesiologist Reason for consultation: Epidural 01/30/23 09:23 Consult to Golf Club Manager Routine Comment: Discharge provider: Dayana Karimi MD Summary Hospital Course Date Patient Seen: 01/31/23 Time Patient Seen: 09:10 Diagnoses: 37-3/7 weeks gestation Gestational hypertension Cervical ripening Pitocin induction of labor Artificial rupture of membranes Epidural analgesia intolerance of labor Primary low-transverse section Hospital Course: Patient is a 32-year-old 3 para 0 who presented on January 27, 2023 for cervical ripening. She received a Aparicio catheter misoprostol. On 01/28 she was placed on low-dose Pitocin. Artificial rupture of membranes was performed late in the evening on 01/28. By 6:00 p.m. on 01/29 she was 8 cm dilated. She received an epidural for pain management. She received 1 dose of antibiotics. Overnight she had very little progression of dilation. She began having late decelerations and minimal ahos-yn-udnd variability. A decision was made to proceed with a primary low-transverse section under epidural analgesia. Baby was found to be in the direct occiput posterior presentation. Her course was unremarkable. She is discharged home on postop day #1. Peripartum Data Infant Delivery Method: Emergency Section Procedures: Aparicio catheter cervical ripening Misoprostol cervical ripening Pitocin induction of labor Artificial rupture of membranes Epidural analgesia Primary low-transverse section complications: none 1: Gender: Male Disposition of : home Status at Discharge Cognitive/behavioral status at discharge: oriented Functional status at discharge: independent ambulation Overall status at discharge: patient is progressing back to baseline Time Spent with Patient Time attestation: Total time spent providing and/or coordinating discharge services: Time spent: Less than 30 minutes Objective Labs 01/31/23 06:20 01/29/23 22:49 Labs: Laboratory Results - last 24 hr 01/31/23 01/31/23 06:20 06:20 WBC 17.0 H RBC 3.31 L Hgb 10.0 L Hct 29.5 L MCV 89.1 MCH 30.2 MCHC 33.9 RDW 13.6 Plt Count 238 Neut % (Auto) 86.2 H Lymph % (Auto) 8.9 L Barbour % (Auto) 4.4 Eos % (Auto) 0.4 L Baso % (Auto) 0.1 Neut # (Auto) 71062 H Lymph # (Auto) 1500 Barbour # (Auto) 800 Eos # (Auto) 100 Baso # (Auto) 0 Antibody Screen Negative Exam Vital Signs (past 8 hours): Oxygen Delivery Method Room Air Narrative Exam Narrative: Generally: Patient sitting up in a chair, no acute distress Lungs: Clear to auscultation bilaterally Cardiovascular: Regular rate and rhythm Fundus: Firm at U -2 Incision: Clean dry and intact with Aquacel dressing Extremities: 1+ edema, negative Homans Discharge Plan Discharge Plan Patient Disposition: Home Provider Discharge Comment: Call with fever, chills, or redness or drainage around the incision Call with bleeding vaginally more than a pad in an hour Tylenol 650 mg every 6 hours as needed Ibuprofen 600 mg every 6 hours as needed Stool softener as needed Discharge orders & Medications Prescriptions: Continued prenat.vits,leeanne,[id number] Tablet 1 tab PO DAILY Follow up/Referrals: Laura Willams, DELFINO, PLASTICS FABRICATION SUPERVISOR [Advanced Corporate Law Assistant] - (Aquacel dressing to be removed by v belt mold assembler and curer. Six week at [facility]) Diet/Activity/Treatments Diet: Regular Activity: No heavy lifting, nothing more than the baby for first 2 weeks Nothing in the vagina for 6 weeks Skin/Wound/Dressing Care Report to your healthcare provider any signs of infection, such as:: chills, fever, increased pain, unusual drainage and unusual redness Dressing: Do not remove Visit Report/Discharge Packet Instructions: DI for Stand Alone Forms: Discharge: Care, Patient Portal/API, Stroke Signs & Symptoms Discharge Data Primary Care Provider: Christin Monterroso
== END 2023-01-31 18:50 | disposition home or self-care (01) | DRG 540 ==
PROVIDERS: Obstetrics & Gynecology; Admitting Provider Advanced Practice Midwife; PCP Internal Medicine; Referring Provider Advanced Practice Midwife; Visit Provider Advanced Practice Midwife
PROC: 10D00Z1 Extraction of Products of Conception, Low, Open Approach (ICD-10-PCS; CPT 59514; principal; 2023-01-30 07:00)
DX: O63.0 Prolonged first stage (of labor) (principal); O13.4 Gestational [pregnancy-induced] hypertension without significant proteinuria, complicating childbirth; O64.0XX0 Obstructed labor due to incomplete rotation of fetal head, not applicable or unspecified; Z37.0 Single live birth; Z3A.37 37 weeks gestation of pregnancy; Z67.40 Type O blood, Rh positive; Z91.040 Latex allergy status; O26.62 Liver and biliary tract disorders in childbirth; O76 Abnormality in fetal heart rate and rhythm complicating labor and delivery
CPT/HCPCS: 36415; 59050; 59200; 59514; 80053; 82570; 84156; 84550; 85025; 86850; 86900; 86901; 87070; 87075; 87077; 87147; 87205; G0379; J0290; J0690; J1200; J1885; J2270; J2274; J2405; J2590; J3010; J3410

== ENCOUNTER 2023-02-05 16:27 | Inpatient (IN) | payer OTHER, MEDICAID, SELFPAY ==
[2023-02-05] VITALS (25 sets, daily range): BP systolic 107–182; BP diastolic 58–91; PULSE 56–78; RESP 16–27; TEMP 36.7–37.1; O2SAT 97–100; BMI 30.6
--- NOTE | 2023-02-05 16:36 | DI.US.S_ITS ---
PROCEDURE: US ABDOMEN LIMITED INDICATIONS: RIGHT UPPER QUADRANT PAIN 6 DAYS TECHNIQUE: Real-time scanning was performed of the abdominal and retroperitoneal organs, with image documentation. COMPARISON: None. FINDINGS: Liver: Liver is normal in size and homogeneous in echotexture. Gallbladder: Gallbladder is normal in sonographic appearance without gallstones, gallbladder wall thickening, pericholecystic fluid, or abnormal sonographic Cummings's. Biliary ducts: Intrahepatic bile ducts are non-dilated. Extrahepatic bile duct caliber measures 4 mm. Normal is 6-7 mm or less in diameter, or 10 mm or less post-cholecystectomy. Pancreas: Visualized portions of the pancreas are sonographically normal. Miscellaneous: No free abdominal fluid. IMPRESSION: Abdomen without acute sonographic abnormalities. Of note, study was limited secondary to patient scanning characteristics and increased bowel gas. Dictated by: Kg Machado M.D. on 02/05/2023 at 17:55 Approved by: Kg Machado M.D. on 02/05/2023 at 17:56
--- NOTE | 2023-02-05 16:37 | ED.GENADULT ---
HPI - General Adult <Wan Vasquez DO - Last Filed: 02/05/23 18:23> General Chief complaint: Abdominal Pain Stated complaint: abd pain upper right side Time Seen by Provider: 02/05/23 16:31 Source: patient Mode of arrival: Ambulatory Limitations: no limitations History of Present Illness HPI narrative: Patient is a 32-year-old female. She is 6 days after a after being induced for maternal hypertension. He is . She stated that this morning she started to have right upper quadrant pain but really over the past hour symptoms worsen. No change in bowel habits. No vaginal bleeding. No urinary symptoms. No headache. Has not tried anything for the symptoms prior to arrival. Related Data Home Medications Medication Instructions Recorded Confirmed prenat.vits,leeanne,[id number] 1 tab PO DAILY 06/25/22 02/05/23 Allergies Allergy/AdvReac Type Severity Reaction Status Date / Time grass pollen Allergy Mild Verified 01/28/23 19:52 Latex, Natural Rubber AdvReac Mild ITCHING Verified 01/28/23 19:52 melon AdvReac Mild Verified 01/28/23 19:52 Review of Systems <Wan Vasquez DO - Last Filed: 02/05/23 18:23> Constitutional Constitutional: Reports system reviewed and no additional complaints, except as documented Cardiovascular Cardiovascular: Reports system reviewed and no additional complaints, except as documented Respiratory Respiratory: Reports system reviewed and no additional complaints, except as documented Gastrointestinal Gastrointestinal: Reports system reviewed and no additional complaints, except as documented Genitourinary Genitourinary: Reports system reviewed and no additional complaints, except as documented Integumentary/Breasts Skin/Breast: Reports system reviewed and no additional complaints, except as documented Neurologic Neurologic: Reports system reviewed and no additional complaints, except as documented Hematologic/Lymphatic On Anticoagulants: No Patient History <Wan Vasquez DO - Last Filed: 02/05/23 18:23> Medical History Acne (~2009) History of recurrent miscarriages Painful menstrual periods (~2007) Plantar warts (~1997) Surgical History History of third molar tooth extraction (~2009) History of use of contraceptive intrauterine device (IUD) (~05/25/13) Hx of FLOWER Family History Father Age: 53 Coronary artery disease, angina presence unspecified, unspecified vessel or lesion type, unspecified whether [place] or transplanted heart High cholesterol Essential hypertension Mother Age: 52 Fuentes syndrome Uncomplicated asthma, unspecified asthma severity [place] Grandfather Essential hypertension High cholesterol Heart disease Grandmother Age: 80 Diabetes mellitus Grandmother Heart attack Breast cancer Social History marital status: number of children: 0 household members: spouse lives independently: Yes housing: house pets and animals: Yes (1 dog) education level: college (sally's degree) occupational status: employed current occupational exposures/hazards: No special robb needs: No travel history: over 6 months ago seatbelt use: always water heater temp set < 120 deg: Yes working smoke detector in home: Yes fire extinguisher in home: Yes carbon monox detector in home: Yes firearms in home: Yes firearms unloaded and locked: Yes do you feel safe at home: Yes Smoking Status: Never smoker second hand exposure: No alcohol intake: former substance use type: does not use during the past year weight has: increased > 10 lbs well-balanced diet: daily or most days daily servings fruits/ve or more times/day caffeine: Yes (1 cup/day, aware of 200mg limit) Type(s) of exercise: walking frequency: daily duration: 45-60 minutes/day Smoking Status: Never smoker alcohol intake frequency: other Substance Use Type: does not use Exam <Wan Vasquez DO - Last Filed: 02/05/23 18:23> Initial Vital Signs Initial Vital Signs: Vital Signs Pulse Rate 78 02/05/23 16:33 Pulse Oximetry 100 02/05/23 16:33 Const General: cooperative, comfortable and No ill appearing HENMT Head: normal to inspection and normocephalic Resp Effort & Inspection: normal respiratory effort Auscultation: clear to auscultation bilaterally GI Inspection: normal to inspection and non-distended Palpation: soft, No firm, No guarding and tender (Right upper quadrant) Skin Other: Surgical wound covered with dressing and is clean dry and intact Neuro General: patient alert, patient awake and moves all extremities Extrem General: normal to inspection and capillary refill normal <Toby Daron DO - Last Filed: 02/06/23 01:42> Initial Vital Signs Initial Vital Signs: Vital Signs Pulse Rate 78 02/05/23 16:33 Pulse Oximetry 100 02/05/23 16:33 Course <Wan Vasquez DO - Last Filed: 02/05/23 18:23> Orders Ordered: ED Orders 02/05/23 16:45 CBC Auto Diff [Complete Blood Count AUTO DIFF] Stat CMP [Comprehensive Metabolic Panel] Stat LDH [Lactate Dehydrogenase] Stat Lipase Stat Uric Acid Stat 02/05/23 16:55 UA Complete [Urinalysis and Microscopic] Stat Urine Culture Stat 02/05/23 18:15 CT abdomen pelvis w con Stat Acetaminophen (Acetaminophen 325 Mg Tablet) 975 mg PO Q8H ELLIOT Hydralazine HCl (Hydralazine 20 Mg/Ml Vial) 5 mg IV NOW PRN; Protocol PRN Reason: SBP>= 160 or DBP >=110 Magnesium Sulfate (Magnesium Sulfate) 20 gm in 500 mls @ 50 mls/hr IV CONT ELLIOT Last Admin: 02/05/23 20:53 Dose: 50 mls/hr Documented By: CHRISTIANO Co-signed By: GM Ketorolac Tromethamine (Ketorolac 30 Mg/Ml Vial) 30 mg IV Q6H ELLIOT Stop: 02/10/23 23:08 Last Admin: 02/05/23 23:52 Dose: 30 mg Documented By: CHRISTIANO Labetalol HCl (Labetalol 20 Mg/4 Ml Syringe) 20 mg IV PRN PRN; Protocol PRN Reason: SBP>= 160 or DBP >=110 Nifedipine (Nifedipine 10 Mg Capsule) 10 mg PO NOW PRN; Protocol PRN Reason: SBP>= 160 or DBP >=110 Ondansetron HCl (Ondansetron 4 Mg/2 Ml Inj) 4 mg IV Q6HR PRN PRN Reason: Nausea And Vomiting Discontinued Medications Acetaminophen (Acetaminophen 325 Mg Tablet) 975 mg PO NOW ONE Stop: 02/05/23 17:46 Last Admin: 02/05/23 17:56 Dose: 975 mg Documented By: DRISS Sodium Chloride (Normal Saline 0.9%) 1,000 mls @ 1,000 mls/hr IV BOLUS ONE Stop: 02/05/23 19:39 Last Infusion: 02/05/23 19:20 Dose: 0 mls/hr Documented By: DRISS(2) Admin: 02/05/23 19:00 Dose: 1,000 mls/hr Documented By: SHERRILL Calcium Gluconate 9.3 meq/ (Sodium Chloride) 70 mls @ 140 mls/hr IV NOW ONE Stop: 02/05/23 21:14 Ketorolac Tromethamine (Ketorolac 30 Mg/Ml Vial) 30 mg IV NOW ONE Stop: 02/05/23 16:37 Last Admin: 02/05/23 16:43 Dose: 30 mg Documented By: DRISS(2) Labetalol HCl (Labetalol 20 Mg/4 Ml Syringe) 10 mg IV NOW ONE Stop: 02/05/23 18:41 Last Admin: 02/05/23 19:01 Dose: 10 mg Documented By: SHERRILL Vital Signs Vital signs: Vital Signs - 8 hr 02/05/23 17:43 02/05/23 17:43 02/05/23 18:00 Pulse Rate 61 70 Respiratory Rate 17 Blood Pressure 144/69 H Pulse Oximetry 98 98 Oxygen Delivery Method 02/05/23 18:13 02/05/23 18:13 02/05/23 18:36 Pulse Rate 60 56 L Respiratory Rate 27 H 24 Blood Pressure 156/76 H Pulse Oximetry 97 97 Oxygen Delivery Method 02/05/23 19:00 Pulse Rate 59 L Respiratory Rate 17 Blood Pressure Pulse Oximetry 97 Oxygen Delivery Method Room Air <Toby Neri, - Last Filed: 02/06/23 01:42> Orders Ordered: ED Orders 02/05/23 16:45 CBC Auto Diff [Complete Blood Count AUTO DIFF] Stat CMP [Comprehensive Metabolic Panel] Stat LDH [Lactate Dehydrogenase] Stat Lipase Stat Uric Acid Stat 02/05/23 16:55 UA Complete [Urinalysis and Microscopic] Stat Urine Culture Stat 02/05/23 18:15 CT abdomen pelvis w con Stat Acetaminophen (Acetaminophen 325 Mg Tablet) 975 mg PO Q8H ELLIOT Hydralazine HCl (Hydralazine 20 Mg/Ml Vial) 5 mg IV NOW PRN; Protocol PRN Reason: SBP>= 160 or DBP >=110 Magnesium Sulfate (Magnesium Sulfate) 20 gm in 500 mls @ 50 mls/hr IV CONT ELLIOT Last Admin: 02/05/23 20:53 Dose: 50 mls/hr Documented By: CHRISTIANO Co-signed By: ARABELLA Ketorolac Tromethamine (Ketorolac 30 Mg/Ml Vial) 30 mg IV Q6H ELLIOT Stop: 02/10/23 23:08 Last Admin: 02/05/23 23:52 Dose: 30 mg Documented By: CHRISTIANO Labetalol HCl (Labetalol 20 Mg/4 Ml Syringe) 20 mg IV PRN PRN; Protocol PRN Reason: SBP>= 160 or DBP >=110 Nifedipine (Nifedipine 10 Mg Capsule) 10 mg PO NOW PRN; Protocol PRN Reason: SBP>= 160 or DBP >=110 Ondansetron HCl (Ondansetron 4 Mg/2 Ml Inj) 4 mg IV Q6HR PRN PRN Reason: Nausea And Vomiting Discontinued Medications Acetaminophen (Acetaminophen 325 Mg Tablet) 975 mg PO NOW ONE Stop: 02/05/23 17:46 Last Admin: 02/05/23 17:56 Dose: 975 mg Documented By: DRISS Sodium Chloride (Normal Saline 0.9%) 1,000 mls @ 1,000 mls/hr IV BOLUS ONE Stop: 02/05/23 19:39 Last Infusion: 02/05/23 19:20 Dose: 0 mls/hr Documented By: DRISS(2) Admin: 02/05/23 19:00 Dose: 1,000 mls/hr Documented By: SHERRILL Calcium Gluconate 9.3 meq/ (Sodium Chloride) 70 mls @ 140 mls/hr IV NOW ONE Stop: 02/05/23 21:14 Ketorolac Tromethamine (Ketorolac 30 Mg/Ml Vial) 30 mg IV NOW ONE Stop: 02/05/23 16:37 Last Admin: 02/05/23 16:43 Dose: 30 mg Documented By: DRISS(2) Labetalol HCl (Labetalol 20 Mg/4 Ml Syringe) 10 mg IV NOW ONE Stop: 02/05/23 18:41 Last Admin: 02/05/23 19:01 Dose: 10 mg Documented By: SHERRILL Vital Signs Vital signs: Vital Signs - 8 hr 02/05/23 17:43 02/05/23 17:43 02/05/23 18:00 Pulse Rate 61 70 Respiratory Rate 17 Blood Pressure 144/69 H Pulse Oximetry 98 98 Oxygen Delivery Method 02/05/23 18:13 02/05/23 18:13 02/05/23 18:36 Pulse Rate 60 56 L Respiratory Rate 27 H 24 Blood Pressure 156/76 H Pulse Oximetry 97 97 Oxygen Delivery Method 02/05/23 19:00 Pulse Rate 59 L Respiratory Rate 17 Blood Pressure Pulse Oximetry 97 Oxygen Delivery Method Room Air Medical Decision Making <Wan VasquezDO - Last Filed: 02/05/23 18:23> Lab Data Lab results reviewed: Yes I reviewed the patient's lab results. 02/05/23 16:45 02/05/23 16:45 Labs: Lab Results 02/05/23 02/05/23 02/05/23 Range/Units 16:45 16:45 16:45 WBC 8.2 (4.5-11.0) X10^3/uL RBC 3.96 L (4.0-5.2) X10^6/uL Hgb 12.0 (12.0-16.0) g/dL Hct 35.1 L (36-46) % MCV 88.6 (80-100) fL MCH 30.2 (26-34) PG MCHC 34.1 (30-36) % RDW 13.6 (11.6-14.8) % Plt Count 485 H (150-400) X10^3/uL Neut % (Auto) 71.3 (50-75) % Lymph % (Auto) 19.9 L (25-40) % Starke % (Auto) 6.6 (3-14) % Eos % (Auto) 1.6 L (2-4) % Baso % (Auto) 0.6 (0-2) % Neut # (Auto) 5900 (6826-4680) /uL Lymph # (Auto) 1600 (6709-1527) /uL Starke # (Auto) 500 (0-900) /uL Eos # (Auto) 100 (0-450) /uL Baso # (Auto) 0 (0-100) /uL Sodium 136 L (137-145) mmol/L Potassium 3.9 (3.4-5.1) mmol/L Chloride 103 (98-107) mmol/L Carbon Dioxide 23 (22-32) mmol/L BUN 12 (7-17) mg/dL Creatinine 0.67 (0.52-1.04) mg/dL Estimated GFR > 60 (>60) mL/min BUN/Creatinine Ratio 17.9 (6-22) Glucose 84 (70-100) mg/dL Uric Acid 5.0 (2.5-6.2) mg/dL Calcium 8.6 (8.4-10.2) mg/dL Total Bilirubin 0.3 (0.2-1.3) mg/dL AST 27 (14-36) IU/L ALT 41 H (<35) IU/L Alkaline Phosphatase 151 H (38-126) U/L Lactate Dehydrogenase 177 (120-246) U/L Total Protein 7.0 (6.3-8.2) g/dL Albumin 3.5 (3.5-5.0) g/dL Globulin 3.5 (1.7-4.1) g/dL Albumin/Globulin Ratio 1.0 (1.0-2.8) Lipase 88 (23-300) U/L Urine Color Urine Appearance Urine pH (4.5-8.0) Ur Specific Gamaliel (1.000-1.035) Urine Protein (Negative) Urine Glucose (UA) (Negative) g/dL Urine Ketones (NEGATIVE) Urine Occult Blood (Negative) Urine Nitrate (Negative) Urine Bilirubin (NEGATIVE) Urine Urobilinogen (0.2) E.U./dL Ur Leukocyte Esterase (NEGATIVE) Urine RBC (0-5/HPF) Urine WBC (0-5/HPF) Ur Squamous Epith Cells (0-5/HPF) Urine Bacteria (None) Ur Culture Indicated? 02/05/23 Range/Units 16:55 WBC (4.5-11.0) X10^3/uL RBC (4.0-5.2) X10^6/uL Hgb (12.0-16.0) g/dL Hct (36-46) % MCV (80-100) fL MCH (26-34) PG MCHC (30-36) % RDW (11.6-14.8) % Plt Count (150-400) X10^3/uL Neut % (Auto) (50-75) % Lymph % (Auto) (25-40) % Starke % (Auto) (3-14) % Eos % (Auto) (2-4) % Baso % (Auto) (0-2) % Neut # (Auto) (2064-5248) /uL Lymph # (Auto) (6171-0551) /uL Starke # (Auto) (0-900) /uL Eos # (Auto) (0-450) /uL Baso # (Auto) (0-100) /uL Sodium (137-145) mmol/L Potassium (3.4-5.1) mmol/L Chloride (98-107) mmol/L Carbon Dioxide (22-32) mmol/L BUN (7-17) mg/dL Creatinine (0.52-1.04) mg/dL Estimated GFR (>60) mL/min BUN/Creatinine Ratio (6-22) Glucose (70-100) mg/dL Uric Acid (2.5-6.2) mg/dL Calcium (8.4-10.2) mg/dL Total Bilirubin (0.2-1.3) mg/dL AST (14-36) IU/L ALT (<35) IU/L Alkaline Phosphatase (38-126) U/L Lactate Dehydrogenase (120-246) U/L Total Protein (6.3-8.2) g/dL Albumin (3.5-5.0) g/dL Globulin (1.7-4.1) g/dL Albumin/Globulin Ratio (1.0-2.8) Lipase (23-300) U/L Urine Color Yellow Urine Appearance Clear Urine pH 6.5 (4.5-8.0) Ur Specific Gamaliel <=1.005 (1.000-1.035) Urine Protein Negative (Negative) Urine Glucose (UA) Negative (Negative) g/dL Urine Ketones Negative (NEGATIVE) Urine Occult Blood 2+ H (Negative) Urine Nitrate Negative (Negative) Urine Bilirubin Negative (NEGATIVE) Urine Urobilinogen 0.2 (0.2) E.U./dL Ur Leukocyte Esterase Trace H (NEGATIVE) Urine RBC None seen (0-5/HPF) Urine WBC 0-1/hpf (0-5/HPF) Ur Squamous Epith Cells 1-5 /hpf (0-5/HPF) Urine Bacteria None seen (None) Ur Culture Indicated? Specimen cultured Urine Dip Bedside Urine Glucose Negative Bedside Urine Bilirubin - Negative Bedside Urine Ketone - Negative Urine Specific Gamaliel 1.010 Bedside Urine Occult Blood ++ Bedside Urine pH 6.5 Bedside Urine Protein - Negative Bedside Urine Urobilinogen - Negative Bedside Urine Nitrite - Negative Bedside Urine Leukocytes + 70 Esterase Point of care testing: Urine Dip Bedside Urine Glucose Negative Bedside Urine Bilirubin - Negative Bedside Urine Ketone - Negative Urine Specific Gamaliel 1.010 Bedside Urine Occult Blood ++ Bedside Urine pH 6.5 Bedside Urine Protein - Negative Bedside Urine Urobilinogen - Negative Bedside Urine Nitrite - Negative Bedside Urine Leukocytes + 70 Esterase Imaging Data US - abdomen: Radiologist's Impression: PROCEDURE:? US ABDOMEN LIMITED ? INDICATIONS:? RIGHT UPPER QUADRANT PAIN 6 DAYS ? TECHNIQUE:? Real-time scanning was performed of the abdominal and retroperitoneal organs, with image documentation.? ? COMPARISON:? None. ? FINDINGS:? ? Liver:? Liver is normal in size and homogeneous in echotexture.? ? Gallbladder:? Gallbladder is normal in sonographic appearance without gallstones, gallbladder wall thickening, pericholecystic fluid, or abnormal sonographic Cummings's.? ? Biliary ducts:? Intrahepatic bile ducts are non-dilated.? Extrahepatic bile duct caliber measures 4 mm.? Normal is 6-7 mm or less in diameter, or 10 mm or less post-cholecystectomy.? ? Pancreas:? Visualized portions of the pancreas are sonographically normal.? ? Miscellaneous:? No free abdominal fluid.? ? ? IMPRESSION:? Abdomen without acute sonographic abnormalities.? Of note, study was limited secondary to patient scanning characteristics and increased bowel gas. MDM Narrative Medical decision making narrative: Patient with significant right upper quadrant abdominal pain and hypertension. She is not having headache or vision changes. She is having lower extremity swelling but this is been steady for her over the past couple days. The right upper quadrant ultrasound is unremarkable. She is a slightly elevated ALT. Platelets are mid 400s. She is not anemic. Given the discomfort that she was having upon arrival in the lack of a definitive etiology a CT scan was ordered. Patient's blood pressure has improved however still remains with a systolic greater than 140. Care turned over to Dr. Neri to follow-up on CT scan and disposition. <Toby Neri, DO - Last Filed: 02/06/23 01:42> Lab Data Labs: Lab Results 02/05/23 02/05/23 02/05/23 Range/Units 16:45 16:45 16:45 WBC 8.2 (4.5-11.0) X10^3/uL RBC 3.96 L (4.0-5.2) X10^6/uL Hgb 12.0 (12.0-16.0) g/dL Hct 35.1 L (36-46) % MCV 88.6 (80-100) fL MCH 30.2 (26-34) PG MCHC 34.1 (30-36) % RDW 13.6 (11.6-14.8) % Plt Count 485 H (150-400) X10^3/uL Neut % (Auto) 71.3 (50-75) % Lymph % (Auto) 19.9 L (25-40) % Starke % (Auto) 6.6 (3-14) % Eos % (Auto) 1.6 L (2-4) % Baso % (Auto) 0.6 (0-2) % Neut # (Auto) 5900 (2541-9658) /uL Lymph # (Auto) 1600 (7985-7347) /uL Starke # (Auto) 500 (0-900) /uL Eos # (Auto) 100 (0-450) /uL Baso # (Auto) 0 (0-100) /uL Sodium 136 L (137-145) mmol/L Potassium 3.9 (3.4-5.1) mmol/L Chloride 103 (98-107) mmol/L Carbon Dioxide 23 (22-32) mmol/L BUN 12 (7-17) mg/dL Creatinine 0.67 (0.52-1.04) mg/dL Estimated GFR > 60 (>60) mL/min BUN/Creatinine Ratio 17.9 (6-22) Glucose 84 (70-100) mg/dL Uric Acid 5.0 (2.5-6.2) mg/dL Calcium 8.6 (8.4-10.2) mg/dL Total Bilirubin 0.3 (0.2-1.3) mg/dL AST 27 (14-36) IU/L ALT 41 H (<35) IU/L Alkaline Phosphatase 151 H (38-126) U/L Lactate Dehydrogenase 177 (120-246) U/L Total Protein 7.0 (6.3-8.2) g/dL Albumin 3.5 (3.5-5.0) g/dL Globulin 3.5 (1.7-4.1) g/dL Albumin/Globulin Ratio 1.0 (1.0-2.8) Lipase 88 (23-300) U/L Urine Color Urine Appearance Urine pH (4.5-8.0) Ur Specific Gamaliel (1.000-1.035) Urine Protein (Negative) Urine Glucose (UA) (Negative) g/dL Urine Ketones (NEGATIVE) Urine Occult Blood (Negative) Urine Nitrate (Negative) Urine Bilirubin (NEGATIVE) Urine Urobilinogen (0.2) E.U./dL Ur Leukocyte Esterase (NEGATIVE) Urine RBC (0-5/HPF) Urine WBC (0-5/HPF) Ur Squamous Epith Cells (0-5/HPF) Urine Bacteria (None) Ur Culture Indicated? 02/05/23 Range/Units 16:55 WBC (4.5-11.0) X10^3/uL RBC (4.0-5.2) X10^6/uL Hgb (12.0-16.0) g/dL Hct (36-46) % MCV (80-100) fL MCH (26-34) PG MCHC (30-36) % RDW (11.6-14.8) % Plt Count (150-400) X10^3/uL Neut % (Auto) (50-75) % Lymph % (Auto) (25-40) % Starke % (Auto) (3-14) % Eos % (Auto) (2-4) % Baso % (Auto) (0-2) % Neut # (Auto) (9988-7472) /uL Lymph # (Auto) (5936-3211) /uL Starke # (Auto) (0-900) /uL Eos # (Auto) (0-450) /uL Baso # (Auto) (0-100) /uL Sodium (137-145) mmol/L Potassium (3.4-5.1) mmol/L Chloride (98-107) mmol/L Carbon Dioxide (22-32) mmol/L BUN (7-17) mg/dL Creatinine (0.52-1.04) mg/dL Estimated GFR (>60) mL/min BUN/Creatinine Ratio (6-22) Glucose (70-100) mg/dL Uric Acid (2.5-6.2) mg/dL Calcium (8.4-10.2) mg/dL Total Bilirubin (0.2-1.3) mg/dL AST (14-36) IU/L ALT (<35) IU/L Alkaline Phosphatase (38-126) U/L Lactate Dehydrogenase (120-246) U/L Total Protein (6.3-8.2) g/dL Albumin (3.5-5.0) g/dL Globulin (1.7-4.1) g/dL Albumin/Globulin Ratio (1.0-2.8) Lipase (23-300) U/L Urine Color Yellow Urine Appearance Clear Urine pH 6.5 (4.5-8.0) Ur Specific Gamaliel <=1.005 (1.000-1.035) Urine Protein Negative (Negative) Urine Glucose (UA) Negative (Negative) g/dL Urine Ketones Negative (NEGATIVE) Urine Occult Blood 2+ H (Negative) Urine Nitrate Negative (Negative) Urine Bilirubin Negative (NEGATIVE) Urine Urobilinogen 0.2 (0.2) E.U./dL Ur Leukocyte Esterase Trace H (NEGATIVE) Urine RBC None seen (0-5/HPF) Urine WBC 0-1/hpf (0-5/HPF) Ur Squamous Epith Cells 1-5 /hpf (0-5/HPF) Urine Bacteria None seen (None) Ur Culture Indicated? Specimen cultured Urine Dip Bedside Urine Glucose Negative Bedside Urine Bilirubin - Negative Bedside Urine Ketone - Negative Urine Specific Gamaliel 1.010 Bedside Urine Occult Blood ++ Bedside Urine pH 6.5 Bedside Urine Protein - Negative Bedside Urine Urobilinogen - Negative Bedside Urine Nitrite - Negative Bedside Urine Leukocytes + 70 Esterase Point of care testing: Urine Dip Bedside Urine Glucose Negative Bedside Urine Bilirubin - Negative Bedside Urine Ketone - Negative Urine Specific Gamaliel 1.010 Bedside Urine Occult Blood ++ Bedside Urine pH 6.5 Bedside Urine Protein - Negative Bedside Urine Urobilinogen - Negative Bedside Urine Nitrite - Negative Bedside Urine Leukocytes + 70 Esterase MDM Narrative Medical decision making narrative: Patient with significant right upper quadrant abdominal pain and hypertension. She is not having headache or vision changes. She is having lower extremity swelling but this is been steady for her over the past couple days. The right upper quadrant ultrasound is unremarkable. She is a slightly elevated ALT. Platelets are mid 400s. She is not anemic. Given the discomfort that she was having upon arrival in the lack of a definitive etiology a CT scan was ordered. Patient's blood pressure has improved however still remains with a systolic greater than 140. Care turned over to Dr. Neri to follow-up on CT scan and disposition. Daron - patient admitted and taken out of ED prior to my involvement Discharge Plan Departure Patient Disposition: Admitted As Inpatient Clinical Impression: Abdominal pain, acute, right upper quadrant, HTN (hypertension) Admit Date/Time: 02/05/23 19:04 Admit Provider: Laura Willams
[2023-02-05] MEDS: KETOROLAC 30 MG/ML VIAL IV ×2 (16:43→23:52)
[2023-02-05 17:04] LABS: Appearance Urine UA CLEAR; Bilirubin Urine UA NEGATIVE (NEGATIVE); Color Urine UA YELLOW; Glucose Urine UA NEGATIVE (Negative); Ketones Urine UA NEGATIVE (NEGATIVE); Leukocyte Esterase Urine UA TRACE (NEGATIVE); Nitrite Urine UA NEGATIVE (Negative); Occult Blood Urine UA 2+ (Negative); Protein Urine UA NEGATIVE (Negative); Specific Gravity Urine UA <=1.005 (1.000-1.035); Urobilinogen Urine UA 0.2 E.U./dL (0.2)
[2023-02-05 17:04] LABS: Alanine Aminotransferase 41 IU/L (<35); Albumin 3.5 g/dL (3.5-5.0); Alkaline Phosphatase 151 U/L (38-126); Aspartate Aminotransferase 27 IU/L (14-36); BUN Creatinine Ratio 17.9 (6-22); Bilirubin Total 0.3 mg/dL (0.2-1.3); Blood Urea Nitrogen 12 mg/dL (7-17); Calcium 8.6 mg/dL (8.4-10.2); Carbon Dioxide 23 mmol/L (22-32); Chloride 103 mmol/L (98-107); Estimated Glomerular Filt Rate > 60 mL/min (>60); Globulin 3.5 g/dL (1.7-4.1); Glucose 84 mg/dL (70-100); HEMOLYSIS < 15 (0-50); Lipase 88 U/L (23-300); Potassium 3.9 mmol/L (3.4-5.1); Sodium 136 mmol/L (137-145)
[2023-02-05 17:09] LABS: Add Manual Diff / Slide Review NO; Basophils Absolute Auto 0 /uL (0-100); Basophils Percent Auto 0.6 % (0-2); Eosinophils Absolute Auto 100 /uL (0-450); Eosinophils Percent Auto 1.6 % (2-4); Hematocrit 35.1 % (36-46); Lymphocytes Absolute Auto 1600 /uL (1100-4500); Lymphocytes Percent Auto 19.9 % (25-40); Mean Corpuscular HGB Conc 34.1 % (30-36); Mean Corpuscular Hemoglobin 30.2 PG (26-34); Mean Corpuscular Volume 88.6 fL (80-100); Monocytes Absolute Auto 500 /uL (0-900); Monocytes Percent Auto 6.6 % (3-14); Neutrophils Absolute Auto 5900 /uL (1500-7000); Neutrophils Percent Auto 71.3 % (50-75); Platelet Count 485 X10^3/uL (150-400); Red Blood Cell Count 3.96 X10^6/uL (4.0-5.2); Red Cell Distribution Width 13.6 % (11.6-14.8); White Blood Cell Count 8.2 X10^3/uL (4.5-11.0)
[2023-02-05 17:15] LABS: pH Urine UA 6.5 (4.5-8.0)
[2023-02-05 17:32] LABS: Bacteria Urine None Seen; Culture Indicated Urine Specimen Cultured; RBC Urine None Seen (0-5/HPF); Squamous Epithelial Cell Urine 1-5 /HPF (0-5/HPF); WBC Urine 0-1/HPF (0-5/HPF)
[2023-02-05] MEDS: ACETAMINOPHEN 325 MG TABLET 975 MG PO (17:56)
--- NOTE | 2023-02-05 18:15 | DI.CT.S_ITS ---
PROCEDURE: CT ABDOMEN PELVIS W CON INDICATIONS: RUQ abd pain with 6 days ago TECHNIQUE: After the administration of intravenous contrast, axial sections acquired from the lung bases to the pubic symphysis. Coronal and sagittal reformats were performed. For radiation dose reduction, the following was used: automated exposure control, adjustment of mA and/or kV according to patient size. COMPARISON: None. FINDINGS: Image quality: Excellent. Lung bases: Lung bases are clear. Heart: No significant findings. ABDOMEN: Liver: Liver is unremarkable in appearance without focal intrahepatic abnormalities. No intrahepatic or extrahepatic biliary ductal dilatation. Gallbladder: There is mild circumferential wall thickening of the gallbladder with suggestion of minimal stranding. Tiny punctate density noted in the common bile duct versus distal cystic duct best seen on image 32/series 2. This may represent a gallstone. Biliary ducts: Unremarkable. Pancreas: Homogeneous enhancement without focal lesions or pancreatic ductal dilatation. No peripancreatic inflammation or organized fluid collections. Spleen: No splenomegaly Adrenal Glands: Unremarkable. Kidneys and Ureters: Kidneys are symmetric in size and enhancement, and there is no obstructive uropathy. No perinephric inflammatory changes. Ureters are normal in course and caliber. Stomach and Bowel: Stomach, small bowel loops, and colon are unremarkable. Peritoneum: No abnormal intraperitoneal fluid. A few locules of free air noted in the anti dependent portions of the lower abdomen near the level of the uterus. This is likely related to recent section. Ventral Wall: Postsurgical changes of the lower abdomen/pelvis compatible with recent section. Mild asymmetric inflammatory changes and fluid within the right inguinal region. Abdominal Nodes: No retroperitoneal or mesenteric adenopathy by size criteria. Vessels: Aorta and inferior vena cava are normal in size. PELVIS: Pelvic Organs: Prominent, enlarged uterus compatible with uterus. Small amount of fluid surrounding the uterus likely related to recent section. Bladder: Urinary bladder thickness appears normal for degree of distention. No perivesicular inflammatory stranding. Pelvic Nodes: No enlarged lymph nodes. Miscellaneous: No hernias are seen. Bones: Unremarkable. IMPRESSION: 1. Suggestion of mild gallbladder wall thickening and possible small stone noted near the distal gallbladder neck/cystic duct. Consider further evaluation with right upper quadrant ultrasound for evaluation of cholecystitis if clinically indicated. 2. Expected postsurgical changes from recent section. No evidence for organized fluid collection/abscess formation. Dictated by: Kg Machado M.D. on 02/05/2023 at 19:26 Approved by: Kg Machado M.D. on 02/05/2023 at 19:32
[2023-02-05 18:36] LABS: Lactate Dehydrogenase 177 U/L (120-246)
[2023-02-05] MEDS: SODIUM CHLORIDE 0.9% 1,000 ML 1000 ML IV (19:00)
[2023-02-05] MEDS: LABETALOL 20 MG/4 ML SYRINGE 10 MG IV (19:01)
--- NOTE | 2023-02-05 19:58 | PM.HP.1 ---
History of Present Illness History of Present Illness Date Patient Seen: 02/05/23 Time Patient Seen: 19:59 Date of Onset of Symptoms: 02/05/23 Chief complaint: abd pain upper right side Narrative: Patient is a 32-year-old 3 para 1 who presented to the emergency department with epigastric pain and elevated blood pressure. She developed a headache while in the emergency department. This has gotten worse since arriving at the center. She was feeling well until today, when the epigastric pain started. No visual changes. No nausea or vomiting. is going well. Bleeding is tapering. Pain is well controlled. FORMERLY [facility] Medical History Acne (~2009) History of recurrent miscarriages Painful menstrual periods (~2007) Plantar warts (~1997) Surgical History History of third molar tooth extraction (~2009) History of use of contraceptive intrauterine device (IUD) (~05/25/13) Hx of LASIK Family History Father Age: 53 Coronary artery disease, angina presence unspecified, unspecified vessel or lesion type, unspecified whether [place] or transplanted heart High cholesterol Essential hypertension Mother Age: 52 [place] syndrome Uncomplicated asthma, unspecified asthma severity [place] Grandfather Essential hypertension High cholesterol Heart disease Grandmother Age: 80 Diabetes mellitus Grandmother Heart attack Breast cancer Social History marital status: number of children: 0 household members: spouse lives independently: Yes housing: house pets and animals: Yes (1 dog) education level: college (sally's degree) occupational status: employed current occupational exposures/hazards: No special robb needs: No travel history: over 6 months ago seatbelt use: always water heater temp set < 120 deg: Yes working smoke detector in home: Yes fire extinguisher in home: Yes carbon monox detector in home: Yes firearms in home: Yes firearms unloaded and locked: Yes do you feel safe at home: Yes Smoking Status: Never smoker second hand exposure: No alcohol intake: former (rarely, only when not or attempting to get so) substance use type: does not use during the past year weight has: increased > 10 lbs well-balanced diet: daily or most days daily servings fruits/ve or more times/day caffeine: Yes (1 cup/day, aware of 200mg limit) Type(s) of exercise: walking frequency: daily duration: 45-60 minutes/day Meds Home Medications and Allergies Home Medications Medication Instructions Recorded Confirmed Type prenat.vits,leeanne,[id number] 1 tab PO DAILY 06/25/22 01/28/23 History Allergies Allergy/AdvReac Type Severity Reaction Status Date / Time grass pollen Allergy Mild Verified 01/28/23 19:52 Latex, Natural Rubber AdvReac Mild ITCHING Verified 01/28/23 19:52 melon AdvReac Mild Verified 01/28/23 19:52 Exam Vital Signs (past 8 hours): - 02/05/23 16:44 02/05/23 16:33 02/05/23 16:34 Temperature 98.1 F Pulse Rate 73 78 Respiratory Rate 20 Blood Pressure 182/91 H 182/91 H Pulse Oximetry 100 100 Oxygen Delivery Method Room Air 02/05/23 16:34 02/05/23 17:00 02/05/23 17:30 Temperature Pulse Rate 78 69 60 Respiratory Rate 27 H 17 Blood Pressure Pulse Oximetry 99 98 98 Oxygen Delivery Method Room Air 02/05/23 17:43 02/05/23 17:43 02/05/23 18:00 Temperature Pulse Rate 61 70 Respiratory Rate 17 Blood Pressure 144/69 H Pulse Oximetry 98 98 Oxygen Delivery Method 02/05/23 18:13 02/05/23 18:13 02/05/23 18:36 Temperature Pulse Rate 60 56 L Respiratory Rate 27 H 24 Blood Pressure 156/76 H Pulse Oximetry 97 97 Oxygen Delivery Method 02/05/23 19:00 02/05/23 19:09 02/05/23 19:09 Temperature Pulse Rate 59 L 61 Respiratory Rate 17 17 Blood Pressure 150/70 H Pulse Oximetry 97 97 Oxygen Delivery Method Room Air 02/05/23 19:15 02/05/23 19:15 02/05/23 19:20 Temperature Pulse Rate 63 64 Respiratory Rate 16 Blood Pressure 142/69 H 146/71 H Pulse Oximetry 98 Oxygen Delivery Method Oxygen Delivery Method Room Air Narrative Exam Narrative: Generally: Patient is sitting up in bed, feeding , no acute distress Lungs: Clear to auscultation bilaterally Cardiovascular: Regular rate and rhythm Fundus: Firm at U -5 Incision: Clean dry and intact with Aquacel Extremities: 1+ pitting edema on the right lower extremity, 1+ edema of the left lower extremity, 2+ DTRs, 1 beat of clonus Objective Labs 02/05/23 16:45 02/05/23 16:45 Labs: Laboratory Results - last 24 hr 02/05/23 02/05/23 02/05/23 16:45 16:45 16:45 WBC 8.2 RBC 3.96 L Hgb 12.0 Hct 35.1 L MCV 88.6 MCH 30.2 MCHC 34.1 RDW 13.6 Plt Count 485 H Neut % (Auto) 71.3 Lymph % (Auto) 19.9 L [place] % (Auto) 6.6 Eos % (Auto) 1.6 L Baso % (Auto) 0.6 Neut # (Auto) 5900 Lymph # (Auto) 1600 [place] # (Auto) 500 Eos # (Auto) 100 Baso # (Auto) 0 Sodium 136 L Potassium 3.9 Chloride 103 Carbon Dioxide 23 BUN 12 Creatinine 0.67 Estimated GFR > 60 BUN/Creatinine Ratio 17.9 Glucose 84 Uric Acid 5.0 Calcium 8.6 Total Bilirubin 0.3 AST 27 ALT 41 H Alkaline Phosphatase 151 H Lactate Dehydrogenase 177 Total Protein 7.0 Albumin 3.5 Globulin 3.5 Albumin/Globulin Ratio 1.0 Lipase 88 Urine Color Urine Appearance Urine pH Ur Specific [place] Urine Protein Urine Glucose (UA) Urine Ketones Urine Occult Blood Urine Nitrate Urine Bilirubin Urine Urobilinogen Ur Leukocyte Esterase Urine RBC Urine WBC Ur Squamous Epith Cells Urine Bacteria Ur Culture Indicated? 02/05/23 16:55 WBC RBC Hgb Hct MCV MCH MCHC RDW Plt Count Neut % (Auto) Lymph % (Auto) [place] % (Auto) Eos % (Auto) Baso % (Auto) Neut # (Auto) Lymph # (Auto) [place] # (Auto) Eos # (Auto) Baso # (Auto) Sodium Potassium Chloride Carbon Dioxide BUN Creatinine Estimated GFR BUN/Creatinine Ratio Glucose Uric Acid Calcium Total Bilirubin AST ALT Alkaline Phosphatase Lactate Dehydrogenase Total Protein Albumin Globulin Albumin/Globulin Ratio Lipase Urine Color Yellow Urine Appearance Clear Urine pH 6.5 Ur Specific [place] <=1.005 Urine Protein Negative Urine Glucose (UA) Negative Urine Ketones Negative Urine Occult Blood 2+ H Urine Nitrate Negative Urine Bilirubin Negative Urine Urobilinogen 0.2 Ur Leukocyte Esterase Trace H Urine RBC None seen Urine WBC 0-1/hpf Ur Squamous Epith Cells 1-5 /hpf Urine Bacteria None seen Ur Culture Indicated? Specimen cultured Assessment & Plan Assessment & Plan narrative: Assessment: 32-year-old 3 para 1 with preeclampsia Plan: Begin magnesium sulfate prophylaxis IV labetalol to control blood pressure Repeat labs in the morning Time Spent With Patient Time with patient: 30 to 49 minutes with 50% spent counseling/coordinating care
[2023-02-05] MEDS: MAGNESIUM SULFATE 20 GM/500 ML IV.SOLN IV (20:53)
[2023-02-06] VITALS (14 sets, daily range): BP systolic 121–140; BP diastolic 60–79; PULSE 55–89; RESP 16–19; TEMP 36.4–37.1; O2SAT 97–100
[2023-02-06] MEDS: ACETAMINOPHEN 325 MG TABLET 975 MG PO ×2 (02:58→17:52)
[2023-02-06] MEDS: KETOROLAC 30 MG/ML VIAL IV ×3 (06:03→20:01)
[2023-02-06 06:14] LABS: Add Manual Diff / Slide Review NO; Basophils Absolute Auto 0 /uL (0-100); Basophils Percent Auto 0.4 % (0-2); Eosinophils Absolute Auto 100 /uL (0-450); Eosinophils Percent Auto 1.7 % (2-4); Hematocrit 33.5 % (36-46); Hemoglobin 11.3 g/dL (12.0-16.0); Lymphocytes Absolute Auto 1400 /uL (1100-4500); Lymphocytes Percent Auto 20.3 % (25-40); Mean Corpuscular HGB Conc 33.7 % (30-36); Mean Corpuscular Hemoglobin 29.9 PG (26-34); Mean Corpuscular Volume 88.7 fL (80-100); Monocytes Absolute Auto 500 /uL (0-900); Monocytes Percent Auto 7.3 % (3-14); Neutrophils Absolute Auto 5000 /uL (1500-7000); Neutrophils Percent Auto 70.3 % (50-75); Platelet Count 458 X10^3/uL (150-400); Red Blood Cell Count 3.78 X10^6/uL (4.0-5.2); Red Cell Distribution Width 13.7 % (11.6-14.8); White Blood Cell Count 7.1 X10^3/uL (4.5-11.0)
[2023-02-06 06:36] LABS: Alanine Aminotransferase 36 IU/L (<35); Alkaline Phosphatase 145 U/L (38-126); Bilirubin Total 0.2 mg/dL (0.2-1.3); Bilirubin Unconjugated 0.2 mg/dL (0.0-1.1); Globulin 2.9 g/dL (1.7-4.1); HEMOLYSIS < 15 (0-50); Magnesium 4.9 mg/dL (1.6-2.3); Total Protein 5.9 g/dL (6.3-8.2)
[2023-02-06 06:37] LABS: Aspartate Aminotransferase 27 IU/L (14-36); BUN Creatinine Ratio 16.9 (6-22); Blood Urea Nitrogen 11 mg/dL (7-17); Estimated Glomerular Filt Rate > 60 mL/min (>60); Uric Acid 5.8 mg/dL (2.5-6.2)
--- NOTE | 2023-02-06 06:37 | PC.NURSE ---
H/A 08/20. Pt. states tylenol and toradol are effective. Denies visual disturbance. +1 pitting LE. DTR wnl. VSS, no need over night for med intervention regarding BP. Still has the RUQ pain. Sharp/Shooting. Lungs clear. Total out put 925ml, clear/yellow urine since admission. Total intake 1000ml since admission. Labs pending. Will cont. to monitor.
[2023-02-06 06:47] LABS: Aspartate Aminotransferase 27 IU/L (14-36)
[2023-02-06] MEDS: MAGNESIUM SULFATE 20 GM/500 ML IV.SOLN IV ×2 (08:06→18:41)
--- NOTE | 2023-02-06 10:03 | PC.NURSE ---
0745 patient alert and oriented x3,on bedrest,feeding babe.VSS; hung new bag magnesium.Comfortable. here,reported VS, mag level and other labs.
--- NOTE | 2023-02-06 10:06 | PC.NURSE ---
0930 Patient awake,used bed white,magnesium infusing as ordered; denies and pain or discomfort,eating and drinking well
--- NOTE | 2023-02-06 11:41 | PC.NURSE ---
1100 resting comfortably,denies any pain or discomfort, DTR's +2, Clonus negative,Magnesium continues to run at 2ml/hr, infusing well.
--- NOTE | 2023-02-06 13:38 | PC.NURSE ---
1315 VSS,comfortable, denies any pain or discomfort.Magnesium infusing at 2gm/hr.Bilateral DTR's +2,no clonus,employment consultant in room.
[2023-02-06 14:20] LABS: Magnesium 5.5 mg/dL (1.6-2.3)
--- NOTE | 2023-02-06 14:37 | PC.NURSE ---
1426 incisional pain scale of 3/10; toradol given IV
--- NOTE | 2023-02-06 15:16 | PC.NURSE ---
1500 VSS, pain lessened with toradol,IV infusing,Bedrest. Magnesium sulfate serum level 5.5
--- NOTE | 2023-02-06 17:02 | PC.NURSE ---
VSS,DTR's +2, no clonus; comfortable in bed, notified magnesium level of 5.5. Mag infusing at 2gm/hr.
--- NOTE | 2023-02-06 19:06 | PC.NURSE ---
180 here orders recieved to increase Magnesium to 2.5; labs to be done in AM.Gave t
--- NOTE | 2023-02-06 22:18 | P.PN_ITS ---
Subjective Subjective Date Patient Seen: 02/06/23 Time Patient Seen: 15:00 Interval history: Patient is a 32-year-old who is 1 week after a primary section. She was admitted last evening for preeclampsia. She still has a slight headache. is going well. No blurred vision. Epigastric pain is gone. Exam Vital Signs (past 8 hours): - 02/06/23 15:00 02/06/23 16:40 02/06/23 18:05 Temperature 98.6 F 98.7 F 98.8 F Pulse Rate 89 68 76 Respiratory Rate 16 16 16 Blood Pressure 134/74 128/79 140/73 Pulse Oximetry 100 100 100 02/06/23 20:00 Temperature 97.6 F Pulse Rate 66 Respiratory Rate 19 Blood Pressure 127/74 Pulse Oximetry 98 Oxygen Delivery Method Room Air Narrative Exam Narrative: Generally: Patient is sitting up in bed, no acute distress Incision: Clean dry and intact with Aquacel dressing Extremities: 1+ pitting edema on the right, 1+ edema on the left. 2+ DTRs. No clonus. Objective Labs 02/06/23 06:00 02/06/23 06:00 Labs: Laboratory Results - last 24 hr 02/06/23 02/06/23 02/06/23 06:00 06:00 06:00 WBC 7.1 RBC 3.78 L Hgb 11.3 L Hct 33.5 L MCV 88.7 MCH 29.9 MCHC 33.7 RDW 13.7 Plt Count 458 H Neut % (Auto) 70.3 Lymph % (Auto) 20.3 L [place] % (Auto) 7.3 Eos % (Auto) 1.7 L Baso % (Auto) 0.4 Neut # (Auto) 5000 Lymph # (Auto) 1400 [place] # (Auto) 500 Eos # (Auto) 100 Baso # (Auto) 0 BUN 11 Creatinine 0.65 Estimated GFR > 60 BUN/Creatinine Ratio 16.9 Uric Acid 5.8 Magnesium 4.9 H Total Bilirubin 0.2 Conjugated Bilirubin 0.0 Unconjugated Bilirubin 0.2 AST 27 27 ALT 36 H Alkaline Phosphatase 145 H Total Protein 5.9 L Albumin 3.0 L Globulin 2.9 Albumin/Globulin Ratio 1.0 02/06/23 14:00 WBC RBC Hgb Hct MCV MCH MCHC RDW Plt Count Neut % (Auto) Lymph % (Auto) [place] % (Auto) Eos % (Auto) Baso % (Auto) Neut # (Auto) Lymph # (Auto) [place] # (Auto) Eos # (Auto) Baso # (Auto) BUN Creatinine Estimated GFR BUN/Creatinine Ratio Uric Acid Magnesium 5.5 H* Total Bilirubin Conjugated Bilirubin Unconjugated Bilirubin AST ALT Alkaline Phosphatase Total Protein Albumin Globulin Albumin/Globulin Ratio [facility] Medical History Acne (~2009) History of recurrent miscarriages Painful menstrual periods (~2007) Plantar warts (~1997) Surgical History History of third molar tooth extraction (~2009) History of use of contraceptive intrauterine device (IUD) (~05/25/13) Hx of LASIK Family History Father Age: 53 Coronary artery disease, angina presence unspecified, unspecified vessel or lesion type, unspecified whether [place] or transplanted heart High cholesterol Essential hypertension Mother Age: 52 [place] syndrome Uncomplicated asthma, unspecified asthma severity [place] Grandfather Essential hypertension High cholesterol Heart disease Grandmother Age: 80 Diabetes mellitus Grandmother Heart attack Breast cancer Social History marital status: number of children: 0 household members: spouse lives independently: Yes housing: house pets and animals: Yes (1 dog) education level: college (sally's degree) occupational status: employed current occupational exposures/hazards: No special robb needs: No travel history: over 6 months ago seatbelt use: always water heater temp set < 120 deg: Yes working smoke detector in home: Yes fire extinguisher in home: Yes carbon monox detector in home: Yes firearms in home: Yes firearms unloaded and locked: Yes do you feel safe at home: Yes Smoking Status: Never smoker second hand exposure: No alcohol intake: former substance use type: does not use during the past year weight has: increased > 10 lbs well-balanced diet: daily or most days daily servings fruits/ve or more times/day caffeine: Yes (1 cup/day, aware of 200mg limit) Type(s) of exercise: walking frequency: daily duration: 45-60 minutes/day Assessment & Plan Assessment & Plan narrative: Assessment: 32-year-old with preeclampsia Still with 2+ DTRs Still with mild headache Plan: Continue magnesium sulfate and increase dose to 2.5 grams/hour for 12 more hours Repeat labs in the morning Quality VTE Deep Vein Thrombosis/Pulmonary Embolism Present on Admission: No
[2023-02-07] VITALS: BP 121/65; PULSE 57; RESP 16; TEMP 36.4; O2SAT 99
[2023-02-07] MEDS: KETOROLAC 30 MG/ML VIAL IV ×2 (01:50→08:11)
[2023-02-07] MEDS: ACETAMINOPHEN 325 MG TABLET 975 MG PO (01:50)
[2023-02-07 02:10] LABS: Add Manual Diff / Slide Review NO; Basophils Absolute Auto 0 /uL (0-100); Basophils Percent Auto 0.4 % (0-2); Eosinophils Absolute Auto 200 /uL (0-450); Eosinophils Percent Auto 2.4 % (2-4); Hematocrit 34.9 % (36-46); Hemoglobin 11.6 g/dL (12.0-16.0); Lymphocytes Absolute Auto 1400 /uL (1100-4500); Lymphocytes Percent Auto 21.2 % (25-40); Mean Corpuscular HGB Conc 33.4 % (30-36); Mean Corpuscular Hemoglobin 29.9 PG (26-34); Mean Corpuscular Volume 89.5 fL (80-100); Monocytes Absolute Auto 400 /uL (0-900); Monocytes Percent Auto 6.1 % (3-14); Neutrophils Absolute Auto 4700 /uL (1500-7000); Neutrophils Percent Auto 69.9 % (50-75); Platelet Count 510 X10^3/uL (150-400); Red Cell Distribution Width 13.4 % (11.6-14.8); White Blood Cell Count 6.8 X10^3/uL (4.5-11.0)
[2023-02-07 02:19] LABS: Alanine Aminotransferase 37 IU/L (<35); Albumin 3.4 g/dL (3.5-5.0); Alkaline Phosphatase 156 U/L (38-126); Aspartate Aminotransferase 28 IU/L (14-36); Bilirubin Total 0.4 mg/dL (0.2-1.3); Bilirubin Unconjugated 0.2 mg/dL (0.0-1.1); Globulin 3.3 g/dL (1.7-4.1); HEMOLYSIS < 15 (0-50); Total Protein 6.7 g/dL (6.3-8.2)
[2023-02-07 02:20] LABS: Aspartate Aminotransferase 29 IU/L (14-36); BUN Creatinine Ratio 18.2 (6-22); Blood Urea Nitrogen 12 mg/dL (7-17); Estimated Glomerular Filt Rate > 60 mL/min (>60); Uric Acid 6.1 mg/dL (2.5-6.2)
[2023-02-07 02:21] LABS: Magnesium 7.5 mg/dL (1.6-2.3)
[2023-02-07] MEDS: MAGNESIUM SULFATE 20 GM/500 ML IV.SOLN IV (03:17)
[2023-02-07 04:00] VITALS: BP 124/68; PULSE 55; RESP 15; TEMP 36.4; O2SAT 99
--- NOTE | 2023-02-07 06:41 | PC.NURSE ---
Dr Karimi called at 0224 about critical magnesium level of 7.5. Orders to continue to run magnesium sulfate at 2.5 g/hr and redraw magnesium level at 0800.
--- NOTE | 2023-02-07 06:44 | PC.NURSE ---
RN called Dr Karimi at 0631 because patient was no longer feeling well. DTRs had diminished to 2+, patient feeling very groggy/loopy. Dr Karimi ordered mag to be shut off at this time. Magnesium sulfate was discontinued at 0633.
[2023-02-07 08:00] VITALS: BP 120/65; PULSE 66; RESP 14; TEMP 36.7; O2SAT 100
--- NOTE | 2023-02-07 12:00 | PC.NURSE ---
bilateral brachial reflexes 1+
[2023-02-07 12:30] VITALS: BP 129/72; PULSE 63; RESP 14; TEMP 36.8; O2SAT 98
== END 2023-02-07 12:49 | disposition home or self-care (01) | DRG 561 ==
LOC: ED 18:20 → LABOR 19:23
PROVIDERS: Nurse Practitioner Critical Care Medicine; Obstetrics & Gynecology; Admitting Provider Advanced Practice Midwife; Emergency Provider Emergency Medicine; PCP Internal Medicine; Referring Provider Emergency Medicine; Visit Provider Advanced Practice Midwife
DX: O14.95 Unspecified pre-eclampsia, complicating the puerperium (principal); R10.13 Epigastric pain
CPT/HCPCS: 36415; 74177; 76705; 80053; 80076; 81001; 81003; 83615; 83690; 83735; 84450; 84550; 85025; 87086; 99222; 99232; 99284; G0378; J1885; J3475; Q9967

== ENCOUNTER → 2023-02-21 06:44 | Outpatient (CLI) | payer OTHER, MEDICAID, SELFPAY ==
[2023-02-05 19:08] VITALS: BMI 30.6
--- NOTE | 2023-02-21 | DI.US.S_ITS ---
PROCEDURE: US ABDOMEN LIMITED INDICATIONS: POSSIBLE GALLSTONE ON RECENT CT TECHNIQUE: Real-time focused scanning was performed of the abdomen, with image documentation. COMPARISON: [facility], CT, CT ABDOMEN PELVIS W CON, 02/05/2023, 18:31. [facility], US, US ABDOMEN LIMITED, 02/05/2023, 17:25. FINDINGS: Liver length of 16.9 centimeters, unremarkable echotexture. Several small gallstones are present in the gallbladder without wall thickening or sonographic Cummings sign. No biliary ductal dilation, extrahepatic bile duct measures 4 millimeters. Visualized pancreas is unremarkable sonographically. IMPRESSION: Cholelithiasis without evidence of acute cholecystitis. Dictated by: Hai Chambers M.D. on 02/21/2023 at 8:45 Approved by: Hai Chambers M.D. on 02/21/2023 at 8:51
== END ==
PROVIDERS: PCP Internal Medicine; Referring Provider Internal Medicine; Visit Provider Internal Medicine
DX: Q44.1 Other congenital malformations of gallbladder (principal); K80.20 Calculus of gallbladder without cholecystitis without obstruction
CPT/HCPCS: 76705

== ENCOUNTER 2023-04-09 08:24 | Day surgery (SDC) | payer OTHER, MEDICAID, SELFPAY ==
[2023-03-05 16:11] VITALS: BMI 30.6
[2023-03-26 09:23] VITALS: BMI 27.4
[2023-04-08 07:23] VITALS: BMI 27.4
[2023-04-09] VITALS (7 sets, daily range): BP systolic 126–153; BP diastolic 69–93; PULSE 52–97; RESP 12–20; TEMP 35.9–36.7; O2SAT 95–98; BMI 27.4
--- NOTE | 2023-04-09 | PATH_ITS ---
[facility] Accession Number: [id number] . 01 Material submitted: . gallbladder - GALLBLADDER . 01 Diagnosis: GALLBLADDER, CHOLECYSTECTOMY: BENIGN GALLBLADDER WITH NO EVIDENCE OF CHOLECYSTITIS, OR CHOLELITHIASIS IN SUBMITTED SPECIMEN. WAN 04/17/2023 1056 Local . 01 Electronically signed: . Pancho Disla MD, Pathologist NPI- [id number] . 01 Gross description: . The specimen is received in formalin labeled with the patient's name, , and gallbladder consists of an intact gallbladder measuring 6.8 x 3.5 x 2.3 cm with an unremarkable external surface. The cystic duct margin is margin is inked blue and no pericystic lymph node candidate is identified. The lumen is filled with dark green viscous bile with no calculi identified in the lumen or the container. The mucosa is green and velvety with no discoloration, polyps, or lesions identified. The vazquez average 0.2 cm thick. Cotton Machine Operator sections to include the cystic duct margin and full thickness margins are submitted in cassette A1. ([id number]) /MRV 04/10/20231748 Local . 01 Pathologist provided ICD-10: K80.50 . 01 CPT . 097562 Performed at: 01 [facility] [address] [place] [address] [address], [place], [place] [id number] MD Keshawn Houser MD Phone: [phone]
--- NOTE | 2023-04-09 09:33 | PM.PREOP ---
Pre-operative Note Interval Note History & Physical reviewed/Exam performed by Physician: Yes Changes to H&P: No
[2023-04-09] MEDS: CEFAZOLIN 2 GM/100 ML PREMIX 100 ML IV (10:03)
[2023-04-09] MEDS: LACTATED RINGERS 1,000 ML 100 ML IV (11:06)
[2023-04-09] MEDS: BUPIVACAINE 0.25% (PF) VIAL 30 ML INJ (11:06)
--- NOTE | 2023-04-09 11:23 | PM.OP.1 ---
Operative Date/Time/Diagnoses Date of procedure: 04/09/23 Time of procedure: 11:23 Pre-op diagnosis: Biliary colic Post-op diagnosis: same Procedure & Clinicians Procedure: Laparoscopic cholecystectomy Same procedure as scheduled: Yes Indications: 32-year-old woman recently with symptoms and radiographic findings consistent biliary colic. Surgeon: Saad Rangel Anesthesia Type: General Operative Notes Findings: Critical view of safety established. Evidence of chronic cholecystitis Specimen(s): other (Gallbladder) Estimated Blood Loss (mL): 30 Procedure in detail: The patient was placed supine on the table and bilateral lower extremity compression devices were applied. Anesthesia was induced they were intubated with an endotracheal tube and received 2g of Ancef. A time-out was performed. They were prepped and draped in sterile fashion. An infraumbilical incision was made. The fascia was elevated incised and the abdomen was entered atraumatically. A blunt tip 12mm balloon trocar was then inserted, pneumoperitoneum was established and inspection of the abdomen demonstrated no evidence of injury. They were placed head up and right side up and then a 11 mm port was placed high in the epigastrium and two 5mm in the right upper quadrant. The gallbladder was initially obscured by omentum which was well adhesed to the liver. This was taken down gallbladder was exposed. The gallbladder was grasped by the fundus and retracted over the liver and retracted laterally by the infundibulum. Using electrocautery the lateral plane between the gallbladder and the liver was opened towards the fundus. The gallbladder was then retracted laterally and the medial plane was developed in the same manner. With the gallbladder mobilized the bottom of the cystic plate was visualized. The hepatocystic triangle was meticulosly skeletonized with blunt dissection of fat and fibrous tissue from both the front and the back. Only two structures were then clearly seen entering the gallbladder the cystic duct and the cystic artery. With the critical view of safety fully established the cystic duct was clipped twice proximally and once distally using the 10 mm Weck hemoclip applied under direct visualization and then sharply divided. The cystic artery was divided in the same fashion. The gallbladder was removed from the liver bed using electro cautery. The liver bed was then inspected for hemostasis and this was achieved. The abdomen was irrigated with sterile saline and inspection was made that showed the clips in good position. The specimen was removed using Endo-Catch. The abdomen was desufflated. The umbilical fascia was closed with 0 Vicryl in a [id number] fashion under direct visualization. Skin incisions were irrigated and closed with 4-0 Monocryl. 30 ml of 0.25% bupivacaine was infiltrated into the subcutaneous tissue of the incisions. The wounds were sealed with Dermabond. Patient emerged from anesthesia was extubated and transferred to recovery in stable condition. The sponge and instrument count at the end of the operation was correct. Complications: none Post-operative Condition: stable Disposition: same day surgery
[2023-04-09] MEDS: fentaNYL 100 MCG/2 ML INJ IV (11:28)
[2023-04-09] MEDS: OXYCODONE/ACETAMINOPHEN 5/325 TABLET 1 TAB PO (12:00)
[2023-04-09] MEDS: ONDANSETRON 4 MG/2 ML INJ IV (12:09)
[2023-04-09] MEDS: ONDANSETRON 4 MG ODT SL (12:38)
== END 2023-04-09 12:48 | disposition home or self-care (01) ==
PROVIDERS: PCP Internal Medicine; Referring Provider Surgery; Visit Provider Surgery
PROC: 0FT44ZZ Resection of Gallbladder, Percutaneous Endoscopic Approach (ICD-10-PCS; CPT 47562; principal; 2023-04-09 10:00)
DX: K82.8 Other specified diseases of gallbladder (principal)
CPT/HCPCS: 47562; 81025; 82962; J0330; J0690; J1100; J1885; J2405; J2704; J3010